=== PATIENT | female | born 1975 | race Caucasian/White ===

== ENCOUNTER → 2022-05-22 10:39 | Outpatient (BNVA) | payer BC, SELFPAY | PROVIDERS: PCP Physician Assistant; Referring Provider Obstetrics & Gynecology; Visit Provider Obstetrics & Gynecology | DX: N81.10 Cystocele, unspecified (principal) | CPT/HCPCS: 81000 ==

== ENCOUNTER → 2022-06-12 11:41 | Outpatient (BNVA) | payer BC, SELFPAY | PROVIDERS: PCP Physician Assistant; Visit Provider Obstetrics & Gynecology | DX: N81.2 Incomplete uterovaginal prolapse (principal); Z01.812 Encounter for preprocedural laboratory examination; N81.6 Rectocele; N39.3 Stress incontinence (female) (male) | CPT/HCPCS: 80053; 81000; 81025; 84702; 85025; 86850; 86900 ==

== ENCOUNTER 2022-06-15 06:46 | Day surgery (SDC) | payer BC, SELFPAY ==
[2022-06-11 12:08] VITALS: BMI 33.6
[2022-06-15 07:03] VITALS: BP 144/102; PULSE 81; RESP 16; TEMP 36.5; O2SAT 97
[2022-06-15] MEDS: sodium chloride 0.9% 1,000 ML 30 ML IV (07:13)
--- NOTE | 2022-06-15 07:44 | ANES.PREANE2 ---
Pre-Anesthetic Assessment Height/Weight: Height 1.57 m Weight 83.461 kg Temp Pulse Resp BP Pulse Ox 97.7 F 81 16 144/102 97 06/15/22 07:03 06/15/22 07:03 06/15/22 07:03 06/15/22 07:03 06/15/22 07:03 Preop Diagnosis: Hematochezia Operation Date: 06/15/22 08:15 Proposed Procedures p Colonoscopy 19426/K92.1 melena(Not Applicable) - Isaiah Herrera MD Familial anesthetic complications: None Was Beta William taken within 24 hours: N/A Was Clonidine taken within 24 hours: N/A Last intake: Intake Last Liquid Date 06/14/22 Last Liquid Time 18:00 Last Solid Date 06/13/22 Last Solid Time 19:00 Social Tobacco and No alcohol Exam alert, oriented x 3, clear to auscultation bilaterally and regular rate & rhythm Airway Mallampati: Class I Dentition: chipped CV/HEM Hypertension GI Gastroesophageal Reflux Disease Anesthetic Plan ASA status: 2 Anesthesia: MAC Risk of > 500 ml blood loss (7ml/kg in children): No Medications/Allergies Home Medications Medication Instructions Recorded Confirmed Last Taken Type atorvastatin 40 mg tablet 40 mg PO DAILY 02/11/22 06/15/22 06/14/22 History lisinopril 10 mg tablet 10 mg PO DAILY 02/11/22 06/15/22 06/14/22 History pantoprazole 40 mg tablet,delayed 40 mg PO QAM #90 tab 05/19/22 06/15/22 06/14/22 Rx release Allergies Allergy/AdvReac Type Severity Reaction Status Date / Time No Known Allergies Allergy Verified 06/15/22 07:02 Current Medications Generic Name Dose Route Start Last Admin Trade Name Freq PRN Reason Stop Dose Admin Sodium Chloride 1,000 mls @ 30 mls/hr 06/15/22 07:00 06/15/22 07:13 Sodium Chloride 0.9% IV 30 mls/hr .Q24H NGOC Administration PFSH Anesthesia Medical History (Updated 05/22/22 @ 13:02 by Abdulkadir Funez MD) GERD (gastroesophageal reflux disease) Family History (Updated 05/22/22 @ 10:02 by Beatriz Booker RN) Family/Other Breast cancer maternal great aunt, 40's Colon cancer maternal aunt, 60's Mother Diabetes Hyperlipidemia Hypertension Stroke Thyroid condition Heart disease Sister Uterine cancer 20's Denies family history of Ovarian cancer Clotting disorder Anesthesia complication Bleeding disorder Social History (Updated 05/19/22 @ 14:22 by Gee Jordan) Smoking and tobacco status: current every day smoker cigarettes Packs smoked per day: 0.5 Years cigarettes smoked: 30 Alcohol intake: current Alcohol intake frequency: holidays/special occasions only Data Anesthesia Cardiac Studies: No Data to Display
--- NOTE | 2022-06-15 08:09 | W.PM.OPSFHP ---
Same Day Surgery H&P Indication for Procedure/HPI DATE OF PROCEDURE: June 15, 2022 CHIEF COMPLAINT/INDICATIONFOR SURGICAL PROCEDURE: Hematochezia PREOP DIAGNOSIS: Hematochezia PLANNED PROCEDURE: Operation Date: 06/15/22 08:15 Proposed Procedures p Colonoscopy 14757/K92.1 melena(Not Applicable) - Isaiah Herrera MD Medications/Allergies* Home Medications Medication Instructions Recorded Confirmed Type atorvastatin 40 mg tablet 40 mg PO DAILY 02/11/22 06/15/22 History lisinopril 10 mg tablet 10 mg PO DAILY 02/11/22 06/15/22 History Allergies/Adverse Reactions Allergy/AdvReac Type Severity Reaction Status Date / Time No Known Allergies Allergy Verified 06/15/22 07:02 Current Medications: Generic Name Dose Route Start Last Admin Trade Name Freq PRN Reason Stop Dose Admin Sodium Chloride 1,000 mls @ 30 mls/hr 06/15/22 07:00 06/15/22 07:13 Sodium Chloride 0.9% IV 30 mls/hr .Q24H NGOC Administration Pertinent History/Comorbid Conditions* Medical History (Updated 05/22/22 @ 13:02 by Abdulkadir Funez MD) GERD (gastroesophageal reflux disease) Family History (Updated 05/22/22 @ 10:02 by Beatriz Booker RN) Colon cancer Family/Other maternal aunt, 60's Diabetes Mother Heart disease Mother Hyperlipidemia Mother Breast cancer Family/Other maternal great aunt, 40's Hypertension Mother Uterine cancer Sister 20's Thyroid condition Mother Stroke Mother Denies family history of Ovarian cancer Clotting disorder Anesthesia complication Bleeding disorder Social History Smoking and tobacco status: current every day smoker cigarettes Packs smoked per day: 0.5 Years cigarettes smoked: 30 Alcohol intake: current Alcohol intake frequency: holidays/special occasions only Pertinent Exam Findings alert, oriented x 3, clear to auscultation bilaterally, regular rate & rhythm, operative site marked and procedure specific exam findings Recommendations Surgery/Procedure today Coding Level of Care Code Acute [employer] for Baldo Sargent
[2022-06-15 09:04] VITALS: BP 116/81; PULSE 69; RESP 22; TEMP 36.1; O2SAT 95
--- NOTE | 2022-06-15 09:05 | ANE.PACU2 ---
Inpatient post-anesthesia follow up: Airway intact: Yes Vital signs: Temperature 97 F Pulse Rate 69 Respiratory Rate 22 Blood Pressure 116/81 Pulse Oximetry 95 Oxygen Delivery Me thod Room Air Oxygen Flow Rate Fraction of Inspir ed Oxygen Hydration adequate: Yes Nausea and vomiting: No Pain level: 1 Mental status: Baseline
[2022-06-15 09:14] VITALS: BP 109/72; PULSE 61; RESP 18; O2SAT 97
== END 2022-06-15 09:25 | disposition home or self-care (01) ==
PROVIDERS: PCP Physician Assistant; Visit Provider Internal Medicine
PROC: 0DJD8ZZ Inspection of Lower Intestinal Tract, Via Natural or Artificial Opening Endoscopic (ICD-10-PCS; CPT 45378; principal; 2022-06-15 08:15)
DX: K92.1 Melena (principal); D12.5 Benign neoplasm of sigmoid colon; I10 Essential (primary) hypertension; K21.9 Gastro-esophageal reflux disease without esophagitis; F17.210 Nicotine dependence, cigarettes, uncomplicated; Z80.0 Family history of malignant neoplasm of digestive organs
CPT/HCPCS: 45385; 88305; J2704; J7030

== ENCOUNTER 2022-06-18 12:13 | Observation (INO) | payer BC, SELFPAY ==
[2022-06-12 12:13] VITALS: BMI 33.5
--- NOTE | 2022-06-12 15:27 | ANES.PREANE2 ---
Pre-Anesthetic Assessment Height/Weight: Height 1.57 m Weight 83.007 kg Preop Diagnosis: Incontinence, prolapse Operation Date: 06/18/22 09:50 Proposed Procedures p Total vaginal hysterectomy, bilateral salpingo-oophorectomy 99066, anterior and posterior colporrhaphy 16606, single incision sling 15882, sacrospinous fixation 39973,N81.0,N81.21,N39.3(Not Applicable) - Abdulkadir Funez MD s Salpingectomy(Bilateral) - Abdulkadir Funez MD s Anterior Repair Anterior Colporrhaphy(Not Applicable) - MD telma Samuels Posterior Repair Posterior Colporrhaphy(Not Applicable) - MD telma Samuels Sling(Not Applicable) - MD telma Samuels Sacrospinous Ligament Suspension(Not Applicable) - Abdulkadir Funez MD Familial anesthetic complications: None Was Beta William taken within 24 hours: N/A Was Clonidine taken within 24 hours: N/A Social No alcohol and No tobacco Exam alert, oriented x 3, clear to auscultation bilaterally and regular rate & rhythm Airway Submandibular: within normal limits Cervical ROM: within normal limits Mallampati: Class I Dentition: chipped History/ROS No significant complaints Pulmonary None reported CV/HEM Hypertension incontinence Hepatic None reported GI Gastroesophageal Reflux Disease Gerd w/ reflux Metabolic None reported Musc/skel None reported Neuropsych None reported Anesthetic Plan ASA status: 2 Anesthesia: Anesthesia Evaluation and General Other: We discussed risk and benefits of general anesthesia including PONV, sore throat (sometimes severe), corneal abrasion, positioning and peripheral nerve injuries, life threatening allergic reaction, post operative ICU admission requiring prolonged intubation, stroke, heart attack, , and rare incidences of recall. Patient consents to proceed with general anesthesia. Risk of > 500 ml blood loss (7ml/kg in children): No Other Pertinent Information HCG Qual positive. I called and discussed this with Shankar on the phone at [phone] on 06/12/22 Serum Pending Medications/Allergies Home Medications Medication Instructions Recorded Confirmed Last Taken Type atorvastatin 40 mg tablet 40 mg PO DAILY 02/11/22 06/12/22 Unknown History lisinopril 10 mg tablet 10 mg PO DAILY 02/11/22 06/12/22 Unknown History pantoprazole 40 mg tablet,delayed 40 mg PO QAM #90 tab 05/19/22 06/12/22 Unknown Rx release Allergies Allergy/AdvReac Type Severity Reaction Status Date / Time No Known Allergies Allergy Verified 06/12/22 10:36 [facility] Anesthesia Medical History (Updated 05/22/22 @ 13:02 by Abdulkadir Funez MD) GERD (gastroesophageal reflux disease) Family History (Updated 05/22/22 @ 10:02 by Beatriz Booker RN) Family/Other Breast cancer maternal great aunt, 40's Colon cancer maternal aunt, 60's Mother Diabetes Hyperlipidemia Hypertension Stroke Thyroid condition Heart disease Sister Uterine cancer 20's Denies family history of Ovarian cancer Clotting disorder Anesthesia complication Bleeding disorder Social History (Updated 05/19/22 @ 14:22 by Gee Jordan) Smoking and tobacco status: current every day smoker cigarettes Packs smoked per day: 0.5 Years cigarettes smoked: 30 Alcohol intake: current Alcohol intake frequency: holidays/special occasions only Data Anesthesia Cardiac Studies: No Data to Display
[2022-06-18] VITALS (13 sets, daily range): BP systolic 90–132; BP diastolic 60–85; PULSE 54–711; RESP 12–20; TEMP 36.1–36.8; O2SAT 94–99
[2022-06-18] MEDS: sodium chloride 0.9% 500 ML IV (06:55)
[2022-06-18] MEDS: scopolamine 1.5 Patch 1 PATCH TRANSDERMA (06:56)
[2022-06-18 07:05] LABS: OR HCG Qualitative Urine Negative (Negative)
[2022-06-18] MEDS: sodium chloride 0.9% 1,000 ML 30 ML IV (07:08)
--- NOTE | 2022-06-18 07:11 | P.ANESUD_ITS ---
Pre-Anesthetic Update Pre-Anesthetic Assessment: Date of Surgery/Procedure: 06/18/22 Preop Megan gnosis: Uterine prolapse, cystocele, rectocele, stress urinary incontinence, pelvic Proposed Procedure: Operation Date: 06/18/22 08:05 Proposed Procedures p Total vaginal hysterectomy, bilateral salpingo-oophorectomy 26032, anterior and posterior colporrhaphy 20562, single incision sling 94534, sacrospinous fixation 89171,N81.0,N81.21,N39.3(Not Applicable) - Abdulkadir Funez MD s Salpingectomy(Bilateral) - MD telma Samuels Anterior Repair Anterior Colporrhaphy(Not Applicable) - MD etlma Samuels Posterior Repair Posterior Colporrhaphy(Not Applicable) - MD telma Samuels Sling(Not Applicable) - MD telma Samuels Sacrospinous Ligament Suspension(Not Applicable) - Abdulkadir Funez MD Any changes to Pre-Anesthetic Assessment?: No Last Intake: Intake Last Liquid Date 06/17/22 Last Liquid Time 21:30 Last Solid Date 06/17/22 Last Solid Time 18:00 Vitals: Temperature 97.0 F L 06/18/22 06:35 Temperature Source Temporal Artery S can 06/18/22 06:35 Pulse Rate 74 06/18/22 06:35 Respiratory Rate 18 06/18/22 06:35 Blood Pressure 120/81 06/18/22 06:35 Blood Pressure Desi n 94 06/18/22 06:35 Pulse Oximetry 96 06/18/22 06:35 Oxygen Delivery Me thod 06/18/22 06:36 Exam: Pre-Anes Outpt Exam: alert, oriented x 3, clear to auscultation bilaterally and regular rate & rhythm Cardiac Studies: No Data to Display
--- NOTE | 2022-06-18 08:03 | W.PM.OPSUD ---
Surgery/Procedure H&P Update DATE OF PROCEDURE: June 18, 2022 DATE H&P PERFORMED: 06/12/22 H&P UPDATE INFORMATION: I have reviewed H&P completed within last 30 days, I have examined patient prior to procedure and No changes to prior documentation PREOP DIAGNOSIS: Uterine prolapse, cystocele, rectocele, stress urinary incontinence, pelvic PLANNED PROCEDURE: Operation Date: 06/18/22 08:05 Proposed Procedures p Total vaginal hysterectomy, bilateral salpingo-oophorectomy 28012, anterior and posterior colporrhaphy 71374, single incision sling 09684, sacrospinous fixation 30044,N81.0,N81.21,N39.3(Not Applicable) - Abdulkadir Funez MD s Salpingectomy(Bilateral) - Abdulkadir Funez MD s Anterior Repair Anterior Colporrhaphy(Not Applicable) - Abdulkadir Funez MD s Posterior Repair Posterior Colporrhaphy(Not Applicable) - Abdulkadir Funez MD s Sling(Not Applicable) - Abdulkadir Funez MD s Sacrospinous Ligament Suspension(Not Applicable) - Abdulkadir Funez MD
[2022-06-18] MEDS: ceFOXitin 2,000 MG in sodium chloride 0.9% (plus) 50 ML 100 MG IV (08:33)
--- NOTE | 2022-06-18 09:14 | SUR.OPER ---
family updated of surgical status
[2022-06-18] MEDS: estrogens Conjugated Cream 30 gm 1 APPLIC VAGINAL (09:19)
--- NOTE | 2022-06-18 10:02 | SUR.OPER ---
family updated of surgical status
--- NOTE | 2022-06-18 11:12 | SUR.OPER ---
family updated of surgical status
--- NOTE | 2022-06-18 12:01 | P.OP_ITS ---
Operative Report Date of procedure: June 18, 2022 Pre-op diagnosis: Preop Diagnosis Uterine prolapse, cystocele, rectocele, stress urinary incontinence, pelvic Post-op diagnosis: Same as above Procedure done: Total vaginal hysterectomy with bilateral salpingo-oophorectomy. Single incision mid urethral sling. Anterior colporrhaphy augmented with allograft. Posterior colporrhaphy. Cystoscopy. Implants: Coloplast Altis single incision mid urethral sling Specimens removed/disposition: Uterus left and right fallopian tube and ovary Surgeon: Abdulkadir Funez MD Estimated blood loss (mL): 400 IV fluids (mL): 1,700 Urine output: 600 Procedure: After informed consent and risks, benefits, indications and alternatives reviewed with the patient was taken to the operating room. The patient was placed in dorsal lithotomy position prepped, and draped in the usual sterile fashion. The pre-procedure timeout verifying the correct patient, procedure, site and side, could not requirements was performed and acknowledge by the OR team. A Laughlin catheter was placed. A Bookwalter vaginal retractor was placed into the vagina in usual manner visualize the cervix. Cervix was grasped with a single tooth tenaculum and circumferentially infiltrated with 2% lidocaine with epinephrine. Then cervix was circumferentially incised with bovie and the bladder was dissected off the pubovesical cervical fascia anteriorly with a sponge stick and Metzenbaum scissors. The anterior peritoneal reflection was identified and the anterior cul-de-sac was entered sharply with Metzenbaum scissors. The same procedure was performed posteriorly and a posterior colpotomy was made through the posterior cul-de-sac space without difficulty and the posterior blade of the Bookwalter vaginal retractor was advanced posteriorly into the cul-de-sac. At this time, the left and right uterosacral ligaments were isolated and ligated with 0 Vicryl. The Voyant device was placed over the uterosacral ligaments on either side and was then used in a serial fashion up through the cardinal ligaments bilaterally cross-clamped, cut, and sealed with the Voyant device. Finally, the uterine arteries were cross-clamped, cut, sealed and ligated with the Voyant device. Hemostasis was assured. The broad ligaments were then serially clamped, sealed and cut with the Voyant device on both sides. Excellent hemostasis was visualized. Both cornua were clamped, sealed and cut with the LigaSure/Voyant device. Then the pedicles were then suture ligated with excellent hemostasis. The uterus was excised and submitted for pathologic evaluation. No other abnormalities were noted in the pelvic cavity. Then the right side Infundibular ligament was identified. The ureter was confirmed along the pelvic side wall and peristalsis was noted. The Voyant device was then used to clamp, sealed and transcepted at middistance, again being sure to be clear of the ureter and the fallopian tube and ovary were removed. The same process was then repeated on the left side. Good hemostasis was assure on both sides. The peritoneum was then closed in a pursestring fashion with 0 Vicryl suture. The vaginal cuff angles were closed with [id number] #0 Vicryl suture on both sides and transfixed with the ipsilateral cardinal and uterosacral ligaments. The remainder of the vaginal cuff was closed with #0 Vicryl in a running locked fashion. Then proceeded to perform the single incision mid urethral sling. he anterior vaginal mucosa beneath the midurethra was infiltrated with 0.5% Marcaine with epinephrine. A vertical midline incision was made beneath the midurethra, nearly 1.5 cm length. Careful submucosal dissection was performed bilaterally up to the interior portion of the inferior pubic ramus. The insertion of adductor longus tendon on the patient?s pubic ramus was identified as reference land nan. Palpated the notch along the internal edge of ischiopubic ramus where the adductor longus tendon and the inferior pubic ramus meet. The Altis single incision sling (SIS) was selected. Then the needle of the SIS inserted aiming at the location of this notch. One of the integrated self- fixating tips place onto the needle by sliding it over the end of the needle. The needle/sling assembly was inserted toward the location of identified reference notch making sure that the flat of the handle is perpendicular to the desired path. The needle was tracked along the posterior surface of the ischiopubic ramus until the midline nan on the mesh is approximately at the midline position under the urethra. The needle was removed and the same was repeated on the contralateral side until the appropriate sling tension under the urethra was achieved ensuring that the mesh lays flat. The needle was removed and vaginal incision was closed in a running interlocking fashion with 2-0 Vicryl. Proceeded to perform anterior colporrhaphy augmented with allograft. The vaginal mucosa was scored in the midline with the Bovie approximately 1 cm medial to the urethral meatus to 1 cm distal to the vaginal cuff. This vaginal mucosa was then undermined and then incised in the midline with the Metzenbaum scissors. The lateral aspects of the vaginal mucosa were then grasped with the Allis clamps and the vaginal mucosa was then dissected off the underlying fascia with the Metzenbaum scissors. Again, there was noted to be quite a bit of oozing at the incision, which was controlled with cautery. After adequate dissection was performed, bilaterally. The Coloplast allograft was modified at time of application to fit spacea, 3 x 2 cm piece . Coloplast dermal allograft placed in front of cystocele ready to be implanted with the Basement Membrane facing the vagina mucosa. Suture is placed at distal end of graft and placed towards vaginal cuff. Final suture is placed on proximal portion of the graft to complete the placement overlying the bladder. Then Interrupted vertical mattress sutures of 0 Vicryl were used to elevate the cystocele superiorly. The excessive vaginal mucosa was then trimmed with the Metzenbaum scissors and the vaginal m ucosa was then reapproximated in the running interlocking fashion with 2-0 Vicryl. The proceeded to perform the posterior colporrhaphy and sacrospinous ligament fixation. The posterior vaginal mucosa is opened in the routine fashion as described previously in Posterior Repair. A finger is inserted through the incision in the posterior vaginal mucosa, dissecting out the rectovaginal space (RVS). The right rectal pillar (RRP) is identified. The rectal pillar can be bluntly perforated either with the [finger or with the tip of a long Gabriela clamp]. A [Breisky- Navratil] retractor is used for exposing the rectovaginal space in order to enter the pararectal space with retraction of the cardinal ligament, vagina, and rectum. Displacing the rectum to the left and the cardinal ligament and ureter anteriorly. A sponge dissector is used to bluntly dissect the sacrospinous ligament removing areolar tissue. The ischial spine was palpated directly, and a area approximately 2 cm medial to the spine was selected for insertion of the Anchorsure transvaginal sacrospinous fixation system. One end of the suture of Anchoresure system inserted through the sacrospinous ligament is placed through the muscular layer of the vagina. In a similar manner, the second suture is placed. The opposite end of the suture in the sacrospinous ligament is left free and held on a small hemostat. Then traction on this suture will draw the vaginal vault directly to the ligament, where a square knot affixes it to the sacrospinous ligament. After the haseeb stich is tied the second safety stich is tied. Then the colporrhaphy/vaginal repair is carried out in routine fashion. A posterior repair was performed next. An incision was made across the introitus. Metzenbaum scissors were used to tunnel beneath posterior vaginal mucosa until the apex of the rectocele bulge was reached. At this point, the rectum was from the posterior vaginal mucosa using sharp and blunt dissection, and the rectal bulge imbricated in the midline with interrupted sutures of 2-0 vicryl suture. Levator ani muscles on either side were approximated in the midline with interrupted 0 Vicryl sutures. Excess posterior vaginal mucosa was excised, and the vaginal episiotomy was repaired by approximating the posterior vaginal mucosa with a suture of Vicryl #0. At this time, instruments were removed from the vagina at hemostasis assured. Then the Laughlin catheter was removed and cystoscope was inserted. The bladder was filled with sterile water. Complete evaluation of the bladder mucosa was performed noting no lacerations, dimpling, tears, bleeding of the mucosa or muscular layers. Both ureteral orifices were identified. Prompt excretion of urine from both ureteral orifices was noted. Cystoscope was withdrawn. Laughlin catheter was then placed yielding clear surekha urine. A vaginal packing with Premarin cream was placed and the patient was taken out of dorsal lithotomy position and awakened from the general anesthesia. The patient tolerated the procedure well and was taken to the PACU recovery room in a stable condition. Sponge, lap, needle and instruments counts were correct x3.
[2022-06-18] MEDS: ketorolac 30 mg/mL INJ IVP ×2 (13:10→18:20)
[2022-06-18] MEDS: dextrose 5%-lactated ringers 1,000 ML 125 ML IV ×2 (13:11→21:15)
[2022-06-18] MEDS: HYDROcodone-acetaminophen 5-325 mg Tablet PO (13:39)
--- NOTE | 2022-06-18 16:22 | ANE.PACU2 ---
Inpatient post-anesthesia follow up: Airway intact: Yes Vital signs: Temperature 98.0 F Pulse Rate 54 Respiratory Rate 16 Blood Pressure 98/62 Pulse Oximetry 96 Oxygen Delivery Me thod Room Air Oxygen Flow Rate Fraction of Inspir ed Oxygen Hydration adequate: Yes Nausea and vomiting: No Pain level: 3 Mental status: Baseline
[2022-06-18] MEDS: pantoprazole DR 40 mg Tablet PO (18:21)
[2022-06-18] MEDS: docusate sodium 100 mg Capsule PO (18:21)
[2022-06-18] MEDS: calcium carbonate 500 mg Chew Tablet 1000 MG PO (20:38)
[2022-06-19 01:11] VITALS: BP 119/73; PULSE 53; RESP 16
[2022-06-19] MEDS: acetaminophen 325 mg Tablet 650 MG PO (03:35)
[2022-06-19 03:38] VITALS: BP 136/86; PULSE 67; RESP 15
[2022-06-19 05:37] LABS: Hematocrit 34.8 % (37.0-47.0); Hemoglobin 12.2 g/dL (11.5-15.3); Mean Corpuscular HGB Conc 35.1 g/dL (30.0-36.0); Mean Corpuscular Volume 85.5 fl (81-99); Mean Platelet Volume 12.2 fL (7.4-10.4); Platelet Count 196 10^3/cmm (130-400); Red Blood Count 4.07 10^6/uL (4.1-5.3); Red Cell Distribution Width 12.4 % (12.1-15.1); White Blood Count 16.5 10^3/uL (4.0-10.0)
[2022-06-19] MEDS: docusate sodium 100 mg Capsule PO (08:46)
[2022-06-19] MEDS: simethicone 80 mg Chew PO (08:46)
[2022-06-19] MEDS: ibuprofen 800 mg tablet PO (08:46)
--- NOTE | 2022-06-19 10:49 | P.DS_ITS ---
Discharge Providers SENIOR LEAD PROJECT MANAGER Date of Admission: 06/18/22 12:13 Date of Discharge: 06/19/22 Attending Provider at Admission: Abdulkadir Funez MD Attending Provider at Discharge: Abdulkadir Funez MD Primary SENIOR LEAD PROJECT MANAGER: Abdulkadir Funez MD Primary Care Provider: Maricruz Poole Reason for Visit Reason for Visit: Surgery Hospital Course Hospital Course Mrs. Sexton 46-year-old female admitted for planned total vaginal hysterectomy with bilateral salpingo-oophorectomy, anterior colporrhaphy augmented with allograft, single incision mid urethral sling, posterior colporrhaphy and sacrospinous fixation. The procedures were performed without complication. Overnight observation has been uneventful. She is afebrile and hemodynamically stable postoperative day 1. Ambulating without difficulty. Tolerating diet well. PVR x2 abnormal and the patient discharged home with Laughlin catheter and instructed to follow-up on Wednesday at the clinic. She was also counseled regarding pelvic rest for 6 weeks (no sex, no tampons, no vaginal douches). Return to the emergency room if any fever, increased bleeding or pain. Physical Exam Narrative: GA: Alert and oriented ?3. HEENT: WNL. Heart: Regular rate and rhythm. Lungs: Clear to auscultation bilaterally. Abdomen: Bowel sounds present, nontender. BUDGET ENGINEER: Spotting bleeding. Extremities: No edema, no cyanosis, no calves pain. Urinary Catheter Management: Laughlin Latex: Cath Placed During This Visit: yes Urinary Catheter Date of Insertion: 06/18/22 Urinary Catheter Time of Insertion: 09:12 History History History 5 Term 0 Miscarriages/Ectopic 2 3 Living Children 3 Discharge Data Studies Completed and Pending Pending at discharge Category Date Time Status ES surgery / GI images Routine Exams 06/18/22 09:16 Taken Pathology: Surgical [PTH] Routine Pth 06/18/22 11:25 Received Laboratory Results WBC 16.5 10^3/uL (4.0-10.0) H 06/19/22 05:15 RBC 4.07 10^6/uL (4.1-5.3) L 06/19/22 05:15 Hgb 12.2 g/dL (11.5-15.3) 06/19/22 05:15 Hct 34.8 % (37.0-47.0) L 06/19/22 05:15 MCV 85.5 fl (81-99) 06/19/22 05:15 MCH 30.0 pg (28.0-34.0) 06/19/22 05:15 MCHC 35.1 g/dL (30.0-36.0) 06/19/22 05:15 RDW 12.4 % (12.1-15.1) 06/19/22 05:15 Plt Count 196 10^3/cmm (130-400) 06/19/22 05:15 MPV 12.2 fL (7.4-10.4) H 06/19/22 05:15 Urine HCG, Qual Negative (Negative) 06/18/22 06:58 Blood Type O Negative 06/18/22 05:51 Rho(D) Type Negative 06/18/22 05:51 Antibody Screen Negative 06/18/22 05:51 Vitals Last Vital Signs Temp 98.3 F 06/18/22 19:48 Pulse 67 06/19/22 03:38 Resp 15 06/19/22 03:38 BP 136/86 06/19/22 03:38 Pulse Ox 97 06/18/22 19:48 Discharge Plan Discharge Patient Disposition: Home Condition: Stable Prescriptions: New hydrocodone-acetaminophen 5-325 mg tablet 1 tab PO Q4H PRN (Reason: pain) Qty: 20 0RF acetaminophen 325 mg capsule 325 mg PO Q4H PRN (Reason: fever or pain) Qty: 60 0RF docusate sodium [Colace] 100 mg capsule 100 mg PO BID Qty: 30 0RF ibuprofen 800 mg tablet 800 mg PO TID PRN (Reason: pain) Qty: 60 0RF Continued lisinopril 10 mg tablet 10 mg PO DAILY 0RF atorvastatin 40 mg tablet 40 mg PO DAILY 0RF pantoprazole 40 mg tablet,delayed release (DR/EC) 40 mg PO QAM Qty: 90 3RF Discharge Orders: Discharge Order (Routine); Ordered 06/19/22 Ordered By: Abdulkadir Funez Discharge Diet: Soft Mechanical Discharge Activity: Limit activity as instructed Patient Instructions: Opioid Safety, Vaginal Hysterectomy (GEN), Hysterectomy (GEN), Bladder Sling for Women (GEN), Anterior Vaginal Repair (GEN), Posterior Vaginal Repair (GEN) Activity Restrictions/Additional Instructions: 1. Please call [facility] on next working day to make your post-operative appointment in 2 weeks. 2. Please stay home until you come back to the clinic on first post-operative check up. 3. Please follow instructions on your medications CAREFULLY. 4. If you have abdominal incision, do not cover it unless dressing is necessary because of drainage. OK to shower, but avoid bath. Leave steri-strips until they fall off. If they are still on one week after surgery, you may remove them. 5. If you had vaginal surgery or vaginal repair, Dr. Funez may instruct you to take SITZ bath. 6. Yellow, blood tinged odorous vaginal discharge is usually normal after hysterectomy or vaginal surgeries. 7. No sexual intercourse, tampons, or douches until you are completely released from the post-operative care. 8. Avoid constipation by eating right and maybe using some Metamucil or Milk of Magnesia. 9. All prescription refills are given during the working hours. Please do no wait till it runs out. Call the clinic at [phone] before your medication runs out. The clinic will get in touch with your doctor to prescribe medications if necessary. 10. Please remain within 40 mile radius from our hospital because emergencies do happen now and then during the post-operative period. 11. If you have stairs at home, take one step at a time slowly and minimize the number of trips. It helps to stay in one floor for the next few days. No lifting except what you can lift by one hand until you are released from the post-operative care. 12. Driving is discouraged until you are well healed. It may be 3-4 weeks before you feel strong enough to drive. You should be able to turn and look through the rear window without pain and you should be able to push the brake pedal very hard without pain before you drive. No fast rules, but SAFETY should be your primary concern. DO NOT drive if you are on sedating medications such as narcotics. 13. Call the clinic (during working hours) to make urgent appointment or go to the Emergency room, if any of the following occurs: i. Vaginal bleeding becomes heavy, more than a period. ii. Incision becomes red and sore, or drains pus. iii. Your temperature is over 100.4 or you have chill. iv. IV site becomes red and swollen (a little ``knot?? is usually OK) v. Persistent nausea and vomiting vi. Persistent constipation or diarrhea vii. Rash or allergic reaction to medications. Discharge Attestations SENIOR LEAD PROJECT MANAGER Time Spent in Discharge Care*: greater than 30 min Coding Level of Care Code Acute Cook Soup for Baldo Sargent
[2022-06-19] MEDS: HYDROcodone-acetaminophen 5-325 mg Tablet PO (11:30)
[2022-06-19 12:20] VITALS: BP 136/73; PULSE 67; RESP 17
== END 2022-06-19 12:25 | disposition home or self-care (01) ==
LOC: OBGYN 12:15
PROVIDERS: Anesthesiology; Admitting Provider Obstetrics & Gynecology; PCP Physician Assistant; Visit Provider Obstetrics & Gynecology
PROC: (CPT 57260; principal; 2022-06-18 08:05)
PROC: (CPT 57250; 2022-06-18 08:05)
PROC: (CPT 57288; 2022-06-18 08:05)
PROC: (CPT 57282; 2022-06-18 08:05)
PROC: 0TJB8ZZ Inspection of Bladder, Via Natural or Artificial Opening Endoscopic (ICD-10-PCS; CPT 52000; 2022-06-18 08:05)
PROC: (CPT 58720; 2022-06-18 08:05)
PROC: 0JQC0ZZ Repair Pelvic Region Subcutaneous Tissue and Fascia, Open Approach (ICD-10-PCS; CPT 57240; 2022-06-18 08:05)
DX: N81.4 Uterovaginal prolapse, unspecified (principal); I10 Essential (primary) hypertension; K21.9 Gastro-esophageal reflux disease without esophagitis; F17.210 Nicotine dependence, cigarettes, uncomplicated
CPT/HCPCS: 57260; 57288; 58262; 36415; 51702; 51798; 81025; 84703; 85027; 86850; 86900; 88305; C1713; C1762; G0378; J0694; J1100; J1170; J1200; J1885; J2250; J2405; J2704; J2710; J3010; J3490; J7030; J7040; Q9968

== ENCOUNTER 2022-06-25 04:33 | Emergency (ER) | payer BC, SELFPAY ==
[2022-06-25] VITALS (8 sets, daily range): BP systolic 101–149; BP diastolic 56–89; PULSE 54–62; RESP 14–22; TEMP 37.1; O2SAT 96–100; BMI 34.2
--- NOTE | 2022-06-25 04:39 | CTR_ITS ---
PROCEDURE INFORMATION: Exam: CT Abdomen And Pelvis Without Contrast Exam date and time: 06/25/2022 4:49 AM Age: 46 years old Clinical indication: Abdominal pain; Localized; Prior surgery; Surgery date: 3-7 days post-operative; Patient HX: C/O worsening lower abd/pelvic pain since hysterectomy on 06/18/2022. ; Additional info: Abd pain TECHNIQUE: Imaging protocol: Computed tomography of the abdomen and pelvis without contrast. Radiation optimization: All CT scans at this facility use at least one of these dose optimization techniques: automated exposure control; mA and/or kV adjustment per patient size (includes targeted exams where dose is matched to clinical indication); or iterative reconstruction. COMPARISON: ES surgery / GI images 06/18/2022 9:17 AM RADIATION DOSE METRICS: Total DLP (mGy-cm): 973.34 FINDINGS: Diaphragm: Small hiatal hernia. Liver: Mild fatty liver. Gallbladder and bile ducts: No calcified stones. No ductal dilation. Pancreas: No ductal dilation. Spleen: No splenomegaly. Adrenal glands: Normal. No mass. 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 No hydronephrosis. No calcified ureteral stones. Unremarkable appearance of the right kidney. Stomach and bowel: No obstruction. No mucosal thickening. Appendix: No evidence of appendicitis. Intraperitoneal space: Small amount of free fluid noted in the pelvis. No complex contained fluid collection. Vasculature: No abdominal aortic aneurysm. Lymph nodes: No enlarged lymph nodes. Urinary bladder: Small amount of air noted in the urinary bladder which may be due to infection or recent instrumentation. Reproductive: Status post hysterectomy. Bones/joints: Unremarkable. No acute fracture. Soft tissues: Unremarkable. CT/CT abdomen pelvis wo con [id number] IMPRESSION: 1. Small amount of air noted in the urinary bladder which may be due to infection or recent instrumentation. 2. Small amount of free fluid noted in the pelvis. No complex contained fluid collection.
--- NOTE | 2022-06-25 04:39 | ED_ITS ---
Documented by User: Tigre Tay MD 06/25/22 04:43 HPI - Abdominal Pain General: Chief Complaint: Abdominal Pain Stated Complaint: ABD PAIN/POST HYSTERECTOMY SURGERY Time Seen by Provider: 06/25/22 04:36 Source: patient and EMS Mode of arrival: EMS Limitations: no limitations History of Present Illness: 38-year-old female is here by EMS she states she had a vaginal hysterectomy 1 week ago she states that she started having severe pains at 2 AM. She states she is also taken her last hydrocodone. States her pain is in her lower abdomen rates it an 8 out of 10. She denies any fever denies any vomiting or diarrhea. She denies any vaginal bleeding she denies any worsening proving factors. Associated Symptoms: Denies chills, dysuria and fever(s) Review of Systems Const: Denies: fever(s), chills, body aches or change in appetite Eyes: Denies: blurry vision or eye discomfort ENMT: Denies: throat pain or dental pain Card: Denies: chest pain Resp: Denies: dyspnea GI: Reports: abdominal pain : Denies: dysuria Musc: Denies: neck pain or back pain Skin/Breast: Denies: rash Neuro: Denies: headache(s) Psych: Denies: depression Barrera/Lymph: Denies: easy bruising All/Imm: Denies: urticaria PFSH ED PFSH: Medical History GERD (gastroesophageal reflux disease) Family History Family/Other Breast cancer maternal great aunt, 40's Colon cancer maternal aunt, 60's Mother Diabetes Hyperlipidemia Hypertension Stroke Thyroid condition Heart disease Sister Uterine cancer 20's Denies family history of Ovarian cancer Clotting disorder Anesthesia complication Bleeding disorder Social History Smoking and tobacco status: current every day smoker cigarettes Packs smoked per day: 0.5 Years cigarettes smoked: 30 Alcohol intake: current Alcohol intake frequency: holidays/special occasions only Physical Exam Const: COMMON NORMALS: no acute distress, patient oriented x3 and healthy ap pearing HENMT: COMMON NORMALS: normocephalic and atraumatic HEAD & SCALP: normocephalic and atraumatic Eye: COMMON NORMALS: Equal, round and reactive pupils present and EOMs intact bilaterally PUPIL: Yes Equal, round and reactive pupils present Neck/C-Spine: COMMON NORMALS: full ROM and supple Chest: COMMONS NORMALS: normal inspection of the chest and normal palpation of entire chest wall Resp: COMMON NORMALS: normal respiratory effort, No retractions, No use of accessory muscles and clear to auscultation bilaterally AUSCULTATION: clear to auscultation bilaterally Cardio: COMMON NORMALS: regular rate, regular rhythm and No murmurs present (Cardio) RATE: regular rate RHYTHM: regular rhythm GI: COMMON NORMALS: Normal to inspection, nondistended, normoactive bowel sounds present, Soft to palpation and no masses PALPATION: Yes Soft to palpation OTHER: lower abdominal tenderness Extremity: COMMON NORMALS: normal to inspection and full ROM Neuro: COMMON NORMALS: patient oriented x3, moves all extremities and no focal motor deficits Psych: COMMON NORMALS: mental status grossly normal, Normal thought process present and cooperative THOUGHT PROCESS: Normal thought process present Skin: COMMON NORMALS: no rashes or lesions noted and no wounds GENERAL SKIN EXAM: no rashes or lesions noted Course Vital Signs: Vital signs: Vital Signs Temperature 98.7 F 06/25/22 04:35 Pulse Rate 59 L 06/25/22 06:30 Respiratory Rate 14 06/25/22 08:17 Blood Pressure 131/88 06/25/22 06:30 Pulse Oximetry 96 06/25/22 08:17 Oxygen Delivery Me thod 06/25/22 06:30 MDM - Abdominal Pain Lab Data : 06/25/22 04:44 06/25/22 04:44 Labs/Radiology: Radiology Impressions Abdomen/Pelvis CT 06/25/22 04:39 IMPRESSION: 1. Small amount of air noted in the urinary bladder which may be due to infection or recent instrumentation. 2. Small amount of free fluid noted in the pelvis. No complex contained fluid collection. Laboratory Results WBC 10.3 10^3/uL (4.0-10.0) H 06/25/22 04:44 RBC 4.04 10^6/uL (4.1-5.3) L 06/25/22 04:44 Hgb 12.1 g/dL (11.5-15.3) 06/25/22 04:44 Hct 36.1 % (37.0-47.0) L 06/25/22 04:44 MCV 89.4 fl (81-99) 06/25/22 04:44 MCH 30.0 pg (28.0-34.0) 06/25/22 04:44 MCHC 33.5 g/dL (30.0-36.0) 06/25/22 04:44 RDW 12.7 % (12.1-15.1) 06/25/22 04:44 Plt Count 220 10^3/cmm (130-400) 06/25/22 04:44 MPV 10.9 fL (7.4-10.4) H 06/25/22 04:44 Neut % (Auto) 75.7 % 06/25/22 04:44 Lymph % (Auto) 13.5 % 06/25/22 04:44 Tift % (Auto) 9.2 % 06/25/22 04:44 Eos % (Auto) 0.5 % 06/25/22 04:44 Baso % (Auto) 0.3 % 06/25/22 04:44 Neut # (Auto) 7.78 10^3/uL (1.8-7.7) H 06/25/22 04:44 Lymph # (Auto) 1.4 10^3/uL (0.8-4.8) 06/25/22 04:44 Tift # (Auto) 0.9 10^3/uL (0.2-0.9) 06/25/22 04:44 Eos # (Auto) 0.1 10^3/uL (0.0-0.8) 06/25/22 04:44 Baso # (Auto) 0.0 10^3/uL (0.0-0.1) 06/25/22 04:44 Nucleated RBC % (auto) 0 % 06/25/22 04:44 Nucleated RBCs # 0.0 /100WBC 06/25/22 04:44 Sodium 140 mmol/L (136-145) 06/25/22 04:44 Potassium 4.1 mmol/L (3.5-5.1) 06/25/22 04:44 Chloride 105 mmol/L (98-107) 06/25/22 04:44 Carbon Dioxide 21 mmol/L (22-29) L 06/25/22 04:44 Anion Gap 18.1 (5-19) 06/25/22 04:44 BUN 13 mg/dL (6-20) 06/25/22 04:44 Creatinine 0.9 mg/dL (0.5-0.9) 06/25/22 04:44 GFR Calculation 66.8 mL/min (90-130) L 06/25/22 04:44 Glucose 116 mg/dL (65-115) H 06/25/22 04:44 Calculated Osmolality 291 mOsm/kg (285-295) 06/25/22 04:44 Calcium 8.9 mg/dL (8.5-10.5) 06/25/22 04:44 Total Bilirubin 0.3 mg/dL (0.15-1.2) 06/25/22 04:44 AST 13 U/L (0-32) 06/25/22 04:44 ALT 9 U/L (0-33) 06/25/22 04:44 Alkaline Phosphatase 123 IU/L (35-105) H 06/25/22 04:44 Total Protein 6.2 g/dL (6.6-8.7) L 06/25/22 04:44 Albumin 3.4 g/dL (3.5-5.2) L 06/25/22 04:44 Globulin 2.8 g/dL (1.3-4.6) 06/25/22 04:44 Lipase 13 U/L (13-60) 06/25/22 04:44 Urine Color Yellow (Yellow) 06/25/22 06:47 Urine Appearance Clear (CLEAR) 06/25/22 06:47 Urine pH 5 (5-7) 06/25/22 06:47 Ur Specific Ell[place] 1.020 (1.005-1.030) 06/25/22 06:47 Urine Protein Neg (Negative) 06/25/22 06:47 Urine Glucose (UA) Norm (Normal) 06/25/22 06:47 Urine Ketones Negative (Negative) 06/25/22 06:47 Urine Blood Neg (Negative) 06/25/22 06:47 Urine Nitrate Negative (Negative) 06/25/22 06:47 Urine Bilirubin Neg (Negative) 06/25/22 06:47 Urine Urobilinogen Norm mg/dL (Negative) 06/25/22 06:47 Ur Leukocyte Esterase Negative (Negative) 06/25/22 06:47 Urine RBC 15-25 /hpf (0-2) H 06/25/22 05:14 Urine WBC 40-55 /hpf (0-5) H 06/25/22 05:14 Ur Squamous Epith Cells 0-4 /hpf (0-5) H 06/25/22 05:14 Amorphous Sediment Not Reportable 06/25/22 05:14 Urine Bacteria Trace /hpf (NONE) 06/25/22 05:14 Urine Mucus Trace /hpf 06/25/22 05:14 Discharge Plan Discharge Patient Disposition: Home Clinical Impression: Status post hysterectomy with oophorectomy Condition: Stable Prescriptions: No Action lisinopril 10 mg tablet 10 mg PO DAILY atorvastatin 40 mg tablet 40 mg PO DAILY pantoprazole 40 mg tablet,delayed release (DR/EC) 40 mg PO QAM Qty: 90 3RF acetaminophen 325 mg capsule 325 mg PO Q4H PRN (Reason: fever or pain) Qty: 60 0RF ibuprofen 800 mg tablet 800 mg PO TID PRN (Reason: pain) Qty: 60 0RF Colace 100 mg capsule 100 mg PO BID Qty: 30 0RF hydrocodone-acetaminophen 5-325 mg tablet 1 tab PO Q4H PRN (Reason: pain) Qty: 20 0RF Discharge Orders: Discharge ED (Routine); Ordered 06/25/22 Ordered By: Washington Henao Referrals: Maricruz Poole PA-C [Primary Care Provider] - Discharge Diet: Usual diet Discharge Activity: Limit activity as instructed Patient Instructions: Opioid Safety Activity Restrictions/Additional Instructions: Continue same restrictions were given at the time of discharge. Follow-up with Dr. Funez or one of his colleagues as previously scheduled. Sign Out Sign Out Data: Patient Sign Out occurred on 06/25/22 at 07:20. Patient's care was discussed, and care was transferred from to Washington Henao DO. Coding Level of Care Code ED Director Of Dementia Operations for Chg Fwd Exam Comprehensive Documented by User: Washington Henao DO 06/25/22 08:49 HPI - Abdominal Pain General: Chief Complaint: Abdominal Pain Stated Complaint: ABD PAIN/POST HYSTERECTOMY SURGERY Time Seen by Provider: 06/25/22 04:36 PFSH ED PFSH: Medical History GERD (gastroesophageal reflux disease) Family History Family/Other Breast cancer maternal great aunt, 40's Colon cancer maternal aunt, 60's Mother Diabetes Hyperlipidemia Hypertension Stroke Thyroid condition Heart disease Sister Uterine cancer 20's Denies family history of Ovarian cancer Clotting disorder Anesthesia complication Bleeding disorder Social History Smoking and tobacco status: current every day smoker cigarettes Packs smoked per day: 0.5 Years cigarettes smoked: 30 Alcohol intake: current Alcohol intake frequency: holidays/special occasions only Course Vital Signs: Vital signs: Vital Signs Temperature 98.7 F 06/25/22 04:35 Pulse Rate 59 L 06/25/22 06:30 Respiratory Rate 14 06/25/22 08:17 Blood Pressure 131/88 06/25/22 06:30 Pulse Oximetry 96 06/25/22 08:17 Oxygen Delivery Me thod 06/25/22 06:30 MDM - Abdominal Pain Medical Decision Making Care assumed from Dr. Tay at change of shift labs reviewed urine was questionable so he had it repeated with a cath UA at which time it was normal. Think some of this may be due to constipation she can try some magnesium citrate continue same restrictions postop. Encouraged her to follow-up with Dr. Singleton or one of his colleagues. Medical Records I reviewed the patient's medical records. Lab Data I reviewed the patient's lab results. : 06/25/22 04:44 06/25/22 04:44 Labs/Radiology: Radiology Impressions Abdomen/Pelvis CT 06/25/22 04:39
[2022-06-25] MEDS: ondansetron 2 mg/ML SDV 2 mL 4 MG IVP (04:47)
[2022-06-25] MEDS: morphine 4 mg/mL SDV 1 mL IVP ×2 (04:47→06:32)
[2022-06-25 04:52] LABS: Basophils % 0.3 %; Eosinophils # 0.1 10^3/uL (0.0-0.8); Eosinophils % 0.5 %; Hematocrit 36.1 % (37.0-47.0); Hemoglobin 12.1 g/dL (11.5-15.3); Lymphocytes # 1.4 10^3/uL (0.8-4.8); Lymphocytes % 13.5 %; Mean Corpuscular HGB Conc 33.5 g/dL (30.0-36.0); Mean Corpuscular Volume 89.4 fl (81-99); Mean Platelet Volume 10.9 fL (7.4-10.4); Monocytes # 0.9 10^3/uL (0.2-0.9); Monocytes % 9.2 %; Neutrophils # 7.78 10^3/uL (1.8-7.7); Neutrophils % 75.7 %; Nucleated Red Blood Cells % 0 %; Platelet Count 220 10^3/cmm (130-400); Red Blood Count 4.04 10^6/uL (4.1-5.3); Red Cell Distribution Width 12.7 % (12.1-15.1); White Blood Count 10.3 10^3/uL (4.0-10.0)
[2022-06-25 05:14] LABS: Alanine Aminotransferase 9 U/L (0-33); Albumin Level 3.4 g/dL (3.5-5.2); Alkaline Phosphatase 123 IU/L (35-105); Anion Gap 18.1 (5-19); Aspartate Amino Transferase 13 U/L (0-32); Blood Urea Nitrogen 13 mg/dL (6-20); Calcium 8.9 mg/dL (8.5-10.5); Carbon Dioxide 21 mmol/L (22-29); Chloride 105 mmol/L (98-107); Globulin 2.8 g/dL (1.3-4.6); Glomerular Filtration Rate 66.8 mL/min (90-130); Glucose 116 mg/dL (65-115); Lipase 13 U/L (13-60); Osmolality Calculated 291 mOsm/kg (285-295); Potassium 4.1 mmol/L (3.5-5.1); Sodium 140 mmol/L (136-145); Total Bilirubin 0.3 mg/dL (0.15-1.2); Total Protein 6.2 g/dL (6.6-8.7)
[2022-06-25 05:36] LABS: Specific Gravity, Urine 1.025 (1.005-1.030); Urine Appearance Clear (CLEAR); Urine Color Yellow (Yellow); pH Urine 5 (5-7)
[2022-06-25 05:37] LABS: Add Urine Culture? Yes; Add Urine Microscopic? YES; Bacteria Urine TRACE /hpf; Bilirubin Urine Neg (Negative); Blood Urine 3+ (Negative); Glucose Urine UA Norm (Normal); Ketones Urine Negative (Negative); Leukocyte Esterase Urine 2+ (Negative); Mucus Urine TRACE /hpf; Nitrate Urine Negative (Negative); Protein Urine Neg (Negative); RBC Urine 15-25 /hpf (0-2); Squamous Epithelial Cell Urine 0-4 /hpf (0-5); Urobilinogen Urine Norm (Negative); WBC Urine 40-55 /hpf (0-5)
--- NOTE | 2022-06-25 07:16 | PC.NURSE ---
WHILE AT BEDSIDE PT CO 10/[address] PA[address] INFOR[address] DASH VERBALIZED UNDERSTANDING NO FURTHER ORDERS.
[2022-06-25] MEDS: morphine 4 mg/mL SDV 1 mL 2 MG IVP (08:17)
[2022-06-25 08:25] LABS: Add Urine Microscopic? NO; Charge for UA Resulting for Rev
[2022-06-25 08:30] LABS: Bilirubin Urine Neg (Negative); Blood Urine Neg (Negative); Glucose Urine UA Norm (Normal); Ketones Urine Negative (Negative); Leukocyte Esterase Urine Negative (Negative); Nitrate Urine Negative (Negative); Protein Urine Neg (Negative); Urine Appearance Clear (CLEAR); Urine Color Yellow (Yellow); Urobilinogen Urine Norm (Negative); pH Urine 5 (5-7)
== END 2022-06-25 08:58 | disposition home or self-care (01) ==
PROVIDERS: Emergency Medicine; Emergency Provider Family Medicine; PCP Physician Assistant
DX: R10.9 Unspecified abdominal pain (principal); Z90.710 Acquired absence of both cervix and uterus; F17.210 Nicotine dependence, cigarettes, uncomplicated
CPT/HCPCS: 74176; 80053; 81001; 81003; 83690; 85025; 87086; 96374; 96375; 96376; 99284; C1751; J2270; J2405

== ENCOUNTER 2022-06-29 20:34 | Emergency (ER) | payer BC, SELFPAY ==
[2022-06-29 20:45] VITALS: BP 159/105; PULSE 102; RESP 18; TEMP 36.5; O2SAT 97; BMI 33.2
[2022-06-29 21:01] LABS: Basophils # 0.1 10^3/uL (0.0-0.1); Basophils % 0.6 %; Eosinophils # 0.1 10^3/uL (0.0-0.8); Eosinophils % 1.2 %; Hematocrit 37.3 % (37.0-47.0); Hemoglobin 12.6 g/dL (11.5-15.3); Lymphocytes # 2.7 10^3/uL (0.8-4.8); Lymphocytes % 22.3 %; Mean Corpuscular HGB Conc 33.8 g/dL (30.0-36.0); Mean Corpuscular Hemoglobin 29.6 pg (28.0-34.0); Mean Corpuscular Volume 87.8 fl (81-99); Mean Platelet Volume 10.1 fL (7.4-10.4); Monocytes # 0.7 10^3/uL (0.2-0.9); Monocytes % 5.4 %; Neutrophils # 8.41 10^3/uL (1.8-7.7); Neutrophils % 69.8 %; Nucleated Red Blood Cells % 0 %; Platelet Count 347 10^3/cmm (130-400); Red Blood Count 4.25 10^6/uL (4.1-5.3); Red Cell Distribution Width 12.8 % (12.1-15.1)
[2022-06-29 21:22] LABS: Alanine Aminotransferase 11 U/L (0-33); Albumin Level 3.9 g/dL (3.5-5.2); Alkaline Phosphatase 102 IU/L (35-105); Anion Gap 18.4 (5-19); Aspartate Amino Transferase 12 U/L (0-32); Blood Urea Nitrogen 15 mg/dL (6-20); Calcium 9.4 mg/dL (8.5-10.5); Carbon Dioxide 21 mmol/L (22-29); Chloride 102 mmol/L (98-107); Globulin 2.6 g/dL (1.3-4.6); Glomerular Filtration Rate 59.2 mL/min (90-130); Glucose 113 mg/dL (65-115); Osmolality Calculated 286 mOsm/kg (285-295); Potassium 4.4 mmol/L (3.5-5.1); Sodium 137 mmol/L (136-145); Total Bilirubin 0.2 mg/dL (0.15-1.2); Total Protein 6.5 g/dL (6.6-8.7)
== END 2022-06-29 22:37 | disposition left against medical advice (07) ==
PROVIDERS: Emergency Medicine; Emergency Provider Family Medicine; PCP Physician Assistant
DX: Z53.21 Procedure and treatment not carried out due to patient leaving prior to being seen by health care provider (principal)
CPT/HCPCS: 80053; 85025; 99283

== ENCOUNTER 2022-07-03 07:18 | Emergency (ER) | payer BC, SELFPAY ==
[2022-07-03 07:28] VITALS: BP 137/90; PULSE 79; RESP 15; TEMP 36.8; O2SAT 98; BMI 32.5
[2022-07-03 07:34] VITALS: BP 137/90; PULSE 80; RESP 18; O2SAT 99
[2022-07-03 08:04] VITALS: BP 114/74; PULSE 64; RESP 17; O2SAT 97
--- NOTE | 2022-07-03 08:31 | ED_ITS ---
HPI - General Adult General: Chief complaint: General Medical Stated complaint: Post Op, in pain Time Seen by Provider: 07/03/22 07:43 Source: patient Mode of arrival: ambulatory History of Present Illness: 46-year-old female presents emergency room she is 2 weeks postop vaginal assisted hysterectomy. She is complaining of some discharge is also complaining of difficulty with urination and abdominal pain she states been going on since that she had surgery she has not had any fever sweats or chills. She has not had any vomiting or diarrhea. She has not seen her surgeon since the surgery. Onset (ago): day(s) Location: pelvis Quality: aching Relieving factors: none Exacerbating factors: none Associated symptoms: Deny chest pain, confusion, cough, diaphoresis, decreased appetite, dyspnea, fevers/chills, headache(s), malaise, nausea, rash, short of breath or vomiting Review of Systems Const: Denies: fever(s), chills, fatigue, malaise or diaphoresis Card: Denies: chest pain Resp: Denies: dyspnea GI: Denies: nausea or vomiting : Reports: difficulty voiding and urinary hesitancy; Denies: flank pain, dysuria, urinary frequency or urinary urgency Skin/Breast: Denies: rash or pruritus Neuro: Denies: headache(s) or confusion PFSH ED PFSH: Medical History GERD (gastroesophageal reflux disease) Family History Family/Other Breast cancer maternal great aunt, 40's Colon cancer maternal aunt, 60's Mother Diabetes Hyperlipidemia Hypertension Stroke Thyroid condition Heart disease Sister Uterine cancer 20's Denies family history of Ovarian cancer Physical Exam Const: COMMON NORMALS: no acute distress GENERAL APPEARANCE: cooperative and comfortable ORIENTATION/CONSCIOUSNESS: Yes awake, Yes oriented to person, Yes oriented to place and Yes oriented to time HENMT: COMMON NORMALS: normocephalic and atraumatic HEAD & SCALP: normocephalic and atraumatic Resp: COMMON NORMALS: normal respiratory effort, No retractions, No use of accessory muscles and clear to auscultation bilaterally AUSCULTATION: clear t o auscultation bilaterally Cardio: COMMON NORMALS: regular rate, regular rhythm and No murmurs present (Cardio) RATE: regular rate RHYTHM: regular rhythm GI: COMMON NORMALS: Soft to palpation and No hepatosplenomegaly present AUSCULTATION: Yes normoactive bowel sounds PALPATION: Yes Soft to palpation, No Tenderness to palpation present (GI), No Guarding due to palpation present (GI) and Yes No hepatosplenomegaly present Extremity: COMMON NORMALS: normal to inspection, capillary refill normal, no clubbing, cyanosis or edema, no calf tenderness and no pedal edema Neuro: SENSORIUM/ORIENTATION: Yes oriented to person, Yes oriented to place and Yes oriented to time Skin: COMMON NORMALS: no rashes or lesions noted GENERAL SKIN EXAM: no rashes or lesions noted Course Vital Signs: Vital signs: Vital Signs Temperature 98.3 F 07/03/22 09:00 Pulse Rate 55 L 07/03/22 10:34 Respiratory Rate 19 H 07/03/22 10:34 Blood Pressure 133/74 07/03/22 10:34 Pulse Oximetry 97 07/03/22 10:34 Oxygen Delivery Me thod 07/03/22 09:30 [facility] - General Adult Medical Decision Making Patient presents complaining of urinary retention. He is 2 weeks postop lap assisted VATS Hyster. CT done 1 week ago was unremarkable her exam today is be nign labs are now normal. Her vital signs are all stable. I talked to Dr. Tafoya who is on-call for [facility] neither of us feel at this point that there is indication for advanced imaging. Dr. Tafoya advised that because of the surgery and repair this is still sensation of urinating will be quite different. Patient was offered and accepted a catheter. Although on postvoid residual there is only 104 mL. Catheter placed patient discharged home she is to follow- up with gynecology next week. Medical Records I reviewed the patient's medical records. Lab Data I reviewed the patient's lab results. : 07/03/22 08:30 07/03/22 08:30 Laboratory Results WBC 11.0 10^3/uL (4.0-10.0) H 07/03/22 08:30 RBC 4.19 10^6/uL (4.1-5.3) 07/03/22 08:30 Hgb 12.5 g/dL (11.5-15.3) 07/03/22 08:30 Hct 40.3 % (37.0-47.0) 07/03/22 08:30 MCV 96.2 fl (81-99) 07/03/22 08:30 MCH 29.8 pg (28.0-34.0) 07/03/22 08:30 MCHC 31.0 g/dL (30.0-36.0) 07/03/22 08:30 RDW 13.2 % (12.1-15.1) 07/03/22 08:30 Plt Count 228 10^3/cmm (130-400) 07/03/22 08:30 MPV 11.3 fL (7.4-10.4) H 07/03/22 08:30 Neut % (Auto) 77.8 % 07/03/22 08:30 Lymph % (Auto) 15.5 % 07/03/22 08:30 [place] % (Auto) 5.0 % 07/03/22 08:30 Eos % (Auto) 0.8 % 07/03/22 08:30 Baso % (Auto) 0.6 % 07/03/22 08:30 Neut # (Auto) 8.55 10^3/uL (1.8-7.7) H 07/03/22 08:30 Lymph # (Auto) 1.7 10^3/uL (0.8-4.8) 07/03/22 08:30 [place] # (Auto) 0.6 10^3/uL (0.2-0.9) 07/03/22 08:30 Eos # (Auto) 0.1 10^3/uL (0.0-0.8) 07/03/22 08:30 Baso # (Auto) 0.1 10^3/uL (0.0-0.1) 07/03/22 08:30 Nucleated RBC % (auto) 0 % 07/03/22 08:30 Nucleated RBCs # 0.0 /100WBC 07/03/22 08:30 Sodium 137 mmol/L (136-145) 07/03/22 08:30 Potassium 4.4 mmol/L (3.5-5.1) 07/03/22 08:30 Chloride 103 mmol/L (98-107) 07/03/22 08:30 Carbon Dioxide 22 mmol/L (22-29) 07/03/22 08:30 Anion Gap 16.4 (5-19) 07/03/22 08:30 BUN 13 mg/dL (6-20) 07/03/22 08:30 Creatinine 1.0 mg/dL (0.5-0.9) H 07/03/22 08:30 GFR Calculation 59.2 mL/min (90-130) L 07/03/22 08:30 Glucose 98 mg/dL (65-115) 07/03/22 08:30 Calculated Osmolality 284 mOsm/kg (285-295) L 07/03/22 08:30 Calcium 9.3 mg/dL (8.5-10.5) 07/03/22 08:30 Total Bilirubin 0.3 mg/dL (0.15-1.2) 07/03/22 08:30 AST 10 U/L (0-32) 07/03/22 08:30 ALT 7 U/L (0-33) 07/03/22 08:30 Alkaline Phosphatase 107 IU/L (35-105) H 07/03/22 08:30 Total Protein 6.2 g/dL (6.6-8.7) L 07/03/22 08:30 Albumin 3.5 g/dL (3.5-5.2) 07/03/22 08:30 Globulin 2.7 g/dL (1.3-4.6) 07/03/22 08:30 Urine Color Yellow (Yellow) 07/03/22 08:15 Urine Appearance Clear (CLEAR) 07/03/22 08:15 Urine pH 5 (5-7) 07/03/22 08:15 Ur Specific [place] 1.015 (1.005-1.030) 07/03/22 08:15 Urine Protein Neg (Negative) 07/03/22 08:15 Urine Glucose (UA) Norm (Normal) 07/03/22 08:15 Urine Ketones Negative (Negative) 07/03/22 08:15 Urine Blood Neg (Negative) 07/03/22 08:15 Urine Nitrate Negative (Negative) 07/03/22 08:15 Urine Bilirubin Neg (Negative) 07/03/22 08:15 Urine Urobilinogen Norm mg/dL (Negative) 07/03/22 08:15 Ur Leukocyte Esterase Negative (Negative) 07/03/22 08:15 Discharge Plan Discharge Patient Disposition: Home Clinical Impression: Postoperative pain, Acute urinary retention Condition: Stable Prescriptions: No Action lisinopril 10 mg tablet 5 mg PO BEDTIME atorvastatin 40 mg tablet 40 mg PO BEDTIME pantoprazole 40 mg tablet,delayed release (DR/EC) 40 mg PO QAM Qty: 90 3RF hydrocodone-acetaminophen 5-325 mg tablet 1 tab PO Q4H PRN (Reason: pain) 3 Days Qty: 10 0RF acetaminophen 325 mg capsule 325 mg PO Q4H PRN (Reason: fever or pain) Qty: 60 0RF docusate sodium [Colace] 100 mg capsule 100 mg PO BID Qty: 30 0RF simethicone [Gas-X] 80 mg Tablet,Chewable 80 mg PO DAILY ibuprofen 800 mg tablet 800 mg PO TID Discharge Orders: Discharge ED (Routine); Ordered 07/03/22 Ordered By: Washington Henao Referrals: Maricruz Poole PA-C [Primary Care Provider] - Patient Instructions: Opioid Safety Activity Restrictions/Additional Instructions: Follow-up with gynecology on July 07 as scheduled. They will discuss with you when you will be able to remove the Laughlin catheter. Coding Level of Care Code ED Endoscopy Tech for Baldo Sargent
[2022-07-03 08:51] LABS: Basophils # 0.1 10^3/uL (0.0-0.1); Basophils % 0.6 %; Eosinophils # 0.1 10^3/uL (0.0-0.8); Eosinophils % 0.8 %; Hematocrit 40.3 % (37.0-47.0); Hemoglobin 12.5 g/dL (11.5-15.3); Lymphocytes # 1.7 10^3/uL (0.8-4.8); Lymphocytes % 15.5 %; Mean Corpuscular Hemoglobin 29.8 pg (28.0-34.0); Mean Corpuscular Volume 96.2 fl (81-99); Mean Platelet Volume 11.3 fL (7.4-10.4); Monocytes # 0.6 10^3/uL (0.2-0.9); Neutrophils # 8.55 10^3/uL (1.8-7.7); Neutrophils % 77.8 %; Nucleated Red Blood Cells % 0 %; Platelet Count 228 10^3/cmm (130-400); Red Blood Count 4.19 10^6/uL (4.1-5.3); Red Cell Distribution Width 13.2 % (12.1-15.1)
[2022-07-03 09:00] VITALS: BP 136/82; PULSE 60; RESP 17; TEMP 36.8; O2SAT 97
[2022-07-03 09:15] LABS: Add Urine Microscopic? NO; Charge for UA Resulting for Rev
[2022-07-03 09:16] LABS: Bilirubin Urine Neg (Negative); Blood Urine Neg (Negative); Glucose Urine UA Norm (Normal); Ketones Urine Negative (Negative); Leukocyte Esterase Urine Negative (Negative); Nitrate Urine Negative (Negative); Protein Urine Neg (Negative); Specific Gravity, Urine 1.015 (1.005-1.030); Urine Appearance Clear (CLEAR); Urine Color Yellow (Yellow); Urobilinogen Urine Norm (Negative); pH Urine 5 (5-7)
[2022-07-03 09:21] LABS: Alanine Aminotransferase 7 U/L (0-33); Albumin Level 3.5 g/dL (3.5-5.2); Alkaline Phosphatase 107 IU/L (35-105); Blood Urea Nitrogen 13 mg/dL (6-20); Calcium 9.3 mg/dL (8.5-10.5); Carbon Dioxide 22 mmol/L (22-29); Chloride 103 mmol/L (98-107); Globulin 2.7 g/dL (1.3-4.6); Glomerular Filtration Rate 59.2 mL/min (90-130); Glucose 98 mg/dL (65-115); Osmolality Calculated 284 mOsm/kg (285-295); Sodium 137 mmol/L (136-145); Total Bilirubin 0.3 mg/dL (0.15-1.2); Total Protein 6.2 g/dL (6.6-8.7)
[2022-07-03 09:23] LABS: Anion Gap 16.4 (5-19); Aspartate Amino Transferase 10 U/L (0-32); Potassium 4.4 mmol/L (3.5-5.1)
[2022-07-03 09:30] VITALS: BP 129/85; PULSE 57; RESP 16; O2SAT 99
[2022-07-03 10:34] VITALS: BP 133/74; PULSE 55; RESP 19; O2SAT 97
== END 2022-07-03 10:18 | disposition home or self-care (01) ==
PROVIDERS: Emergency Provider Family Medicine; PCP Physician Assistant
DX: G89.18 Other acute postprocedural pain (principal); R33.9 Retention of urine, unspecified
CPT/HCPCS: 51702; 51798; 80053; 81003; 85025; 99283

== ENCOUNTER 2022-07-04 05:49 | Emergency (ER) | payer BC, SELFPAY ==
[2022-07-04 06:05] VITALS: BP 145/89; PULSE 76; RESP 18; TEMP 36.3; O2SAT 94; BMI 32.5
--- NOTE | 2022-07-04 06:15 | W.ED.FEMALGU ---
HPI - Female Genitourinary General: Chief complaint: Urogenital-Female Stated complaint: Cathater is leaking Time Seen by Provider: 07/04/22 06:02 Source: patient Mode of arrival: ambulatory History of Present Illness: 46-year-old female presents emergency room with complaints of leaking a Laughlin catheter was placed yesterday in the emergency room. No fever sweats chills no bloody drainage from the catheter. States she woke up this morning and is large amount of leakage from the catheter. Patient was seen yesterday was complaining of urinary retention although on postvoid residuals feeling at 104 mL. After consultation with Roopa we offered her a catheter. She states the pain was worse last night. UA done yesterday was negative. MD elicited complaint: pelvic pain and other (Urinary retention) Pertinent past history: other (2 weeks status post laparoscopic assisted hysterectomy) Onset (ago): week(s) Location of symptoms: urethra Severity: mild Quality of pain: cramping Consistency: constant Urinary symptoms: Difficulty Urinating Exacerbating factors: none Relieving factors: none Associated symptoms: Deny abdominal pain, short of breath, fevers/chills, headache(s), nausea, rash, seizures, syncope, vaginal bleeding, vaginal discharge or weakness Treatment prior to arrival: none Review of Systems Const: Denies: fever(s), chills, body aches, change in appetite, fatigue or malaise ENMT: Denies: throat pain, ear or mastoid pain, nasal discharge or nasal congestion Card: Denies: chest pain or syncope Resp: Denies: dyspnea, productive cough or non-productive cough GI: Denies: abdominal pain or nausea : Denies: vaginal discharge Skin/Breast: Denies: rash or pruritus Neuro: Denies: headache(s) PFS ED PFSH: Medical History GERD (gastroesophageal reflux disease) Family History Family/Other Breast cancer maternal great aunt, 40's Colon cancer maternal aunt, 60's Mother Diabetes Hyperlipidemia Hypertension Stroke Thyroid condition Heart disease Sister Uterine cancer 20's Denies family history of Ovarian cancer Physical Exam Const: COMMON NORMALS: no acute distress GENERAL APPEARANCE: cooperative and comfortable ORIENTATION/CONSCIOUSNESS: Yes awake, Yes oriented to person, Yes oriented to place and Yes oriented to time HENMT: COMMON NORMALS: normocephalic, atraumatic and hearing grossly normal bilaterally HEAD & SCALP: normocephalic and atraumatic Resp: COMMON NORMALS: normal respiratory effort, No retractions, No use of accessory muscles and clear to auscultation bilaterally AUSCULTATION: clear to auscultation bilaterally Cardio: COMMON NORMALS: regular rate, regular rhythm and No murmurs present (Cardio) RATE: regular rate RHYTHM: regular rhythm GI: COMMON NORMALS: Soft to palpation and No hepatosplenomegaly present AUSCULTATION: Yes normoactive bowel sounds PALPATION: Yes Soft to palpation, No Tenderness to palpation present (GI), No Guarding due to palpation present (GI) and Yes No hepatosplenomegaly present : SPECULUM EXAM - VAGINA: No vaginal bleeding OB/EXTERNAL & SPECULUM: No vaginal bleeding Extremity: COMMON NORMALS: normal to inspection, capillary refill normal, no clubbing, cyanosis or edema, no calf tenderness and no pedal edema Neuro: SENSORIUM/ORIENTATION: Yes oriented to person, Yes oriented to place and Yes oriented to time Course Vital Signs: Vital signs: Vital Signs Temperature 97.4 F L 07/04/22 06:05 Pulse Rate 85 07/04/22 08:10 Respiratory Rate 21 H 07/04/22 08:10 Blood Pressure 139/88 07/04/22 08:10 Pulse Oximetry 98 07/04/22 08:10 Oxygen Delivery Me thod 07/04/22 08:10 MDM - Female Medical Decision Making Patient is insisting on having a new catheter placed. Nursing staff irrigated the catheter it was able to flush and draw without any difficulty. There is no blood-tinged urine there is a tiny amount of sediment in the urine bag but does not appear to be blood the urine in the bag is otherwise clear. Discussed with the patient that it is unlikely that changing the catheter will make any difference when we irrigated there was no leakage around the catheter. I think this is coming from bladder spasms. Her exam and her vitals otherwise continue to be normal. I discussed with Dr. Forte. Ultimately decided to start the Pyridium and oxybutynin. I discussed with the patient about whether or not to leave the Laughlin in place some concern that the Laughlin itself is actually precipitating more discomfort she is convinced she will be unable to void completely without it discussed with her that last time she was here when we did the postvoid residual she only had 100 residual. Ultimately she decided to leave it in. We will go ahead and discharge her home with the oxybutynin and Pyridium she can follow-up as a walk-in on Wednesday morning with [facility] if she feels her symptoms are still not controlled otherwise she has a scheduled appointment the following day on 07/07/2022. Discussed strict return instructions if her symptoms worsen. Medical Records I reviewed the patient's medical records. Lab Data I reviewed the patient's lab results. : 07/04/22 07:22 07/04/22 07: Laboratory Results WBC 9.7 10^3/uL (4.0-10.0) 07/04/22 07: RBC 4.12 10^6/uL (4.1-5.3) 07/04/22 07: Hgb 12.2 g/dL (11.5-15.3) 07/04/22 07: Hct 36.0 % (37.0-47.0) L 07/04/22 07: MCV 87.4 fl (81-99) D 07/04/22 07:22 MCH 29.6 pg (28.0-34.0) 07/04/22 07:22 MCHC 33.9 g/dL (30.0-36.0) D 07/04/22 07: RDW 13.2 % (12.1-15.1) 07/04/22 07: Plt Count 267 10^3/cmm (130-400) 07/04/22 07: MPV 10.9 fL (7.4-10.4) H 07/04/22 07: Neut % (Auto) 75.6 % 07/04/22 07:22 Lymph % (Auto) 17.4 % 07/04/22 07:22 [place] % (Auto) 5.0 % 07/04/22 07:22 Eos % (Auto) 1.0 % 07/04/22 07:22 Baso % (Auto) 0.6 % 07/04/22 07:22 Neut # (Auto) 7.32 10^3/uL (1.8-7.7) 07/04/22 07:22 Lymph # (Auto) 1.7 10^3/uL (0.8-4.8) 07/04/22 07:22 [place] # (Auto) 0.5 10^3/uL (0.2-0.9) 07/04/22 07:22 Eos # (Auto) 0.1 10^3/uL (0.0-0.8) 07/04/22 07:22 Baso # (Auto) 0.1 10^3/uL (0.0-0.1) 07/04/22 07:22 Nucleated RBC % (auto) 0 % 07/04/22 07: Nucleated RBCs # 0.0 /100WBC 07/04/22 07:22 Sodium 141 mmol/L (136-145) 07/04/22 07:22 Potassium 4.0 mmol/L (3.5-5.1) 07/04/22 07:22 Chloride 105 mmol/L (98-107) 07/04/22 07:22 Carbon Dioxide 25 mmol/L (22-29) 07/04/22 07:22 Anion Gap 15.0 (5-19) 07/04/22 07:22 BUN 15 mg/dL (6-20) 07/04/22 07:22 Creatinine 0.9 mg/dL (0.5-0.9) 07/04/22 07:22 GFR Calculation 66.8 mL/min (90-130) L 07/04/22 07:22 Glucose 117 mg/dL (65-115) H 07/04/22 07:22 Calculated Osmolality 294 mOsm/kg (285-295) 07/04/22 07:22 Calcium 9.0 mg/dL (8.5-10.5) 07/04/22 07:22 Urine Color Yellow (Yellow) 07/04/22 08:20 Urine Appearance Clear (CLEAR) 07/04/22 08:20 Urine pH 5 (5-7) 07/04/22 08:20 Ur Specific [place] 1.005 (1.005-1.030) 07/04/22 08:20 Urine Protein Trace (Negative) 07/04/22 08:20 Urine Glucose (UA) Norm (Normal) 07/04/22 08:20 Urine Ketones Negative (Negative) 07/04/22 08:20 Urine Blood Neg (Negative) 07/04/22 08:20 Urine Nitrate Negative (Negative) 07/04/22 08:20 Urine Bilirubin 1+ (Negative) H 07/04/22 08:20 Urine Urobilinogen 1 mg/dL (Negative) H 07/04/22 08:20 Ur Leukocyte Esterase Negative (Negative) 07/04/22 08:20 Urine RBC None /hpf (0-2) 07/04/22 08:20 Urine WBC Rare /hpf (0-5) 07/04/22 08:20 Ur Squamous Epith Cells None /hpf (0-5) 07/04/22 08:20 Uric Acid Crystals 0-4 /hpf 07/04/22 08:20 Amorphous Sediment Not Reportable 07/04/22 08:20 Urine Bacteria Trace /hpf (NONE) 07/04/22 08:20 Urine Mucus Trace /hpf 07/04/22 08:20 Discharge Plan Discharge Patient Disposition: Home Clinical Impression: Status post hysterectomy with oophorectomy, Postoperative pain, Acute urinary retention Condition: Stable Prescriptions: New Pyridium 200 mg tablet 200 mg PO Q8H PRN (Reason: pain) Qty: 14 0RF oxybutynin chloride 5 mg tablet extended release 24 hr 5 mg PO DAILY Qty: 5 0RF No Action lisinopril 10 mg tablet 5 mg PO BEDTIME atorvastatin 40 mg tablet 40 mg PO BEDTIME pantoprazole 40 mg tablet,delayed release (DR/EC) 40 mg PO QAM Qty: 90 3RF hydrocodone-acetaminophen 5-325 mg tablet 1 tab PO Q4H PRN (Reason: pain) 3 Days Qty: 10 0RF acetaminophen 325 mg capsule 325 mg PO Q4H PRN (Reason: fever or pain) Qty: 60 0RF docusate sodium [Colace] 100 mg capsule 100 mg PO BID Qty: 30 0RF simethicone [Gas-X] 80 mg Tablet,Chewable 80 mg PO DAILY ibuprofen 800 mg tablet 800 mg PO TID Discharge Orders: Discharge ED (Routine); Ordered 07/04/22 Ordered By: Washington Henao Referrals: Maricruz Poole PA-C [Primary Care Provider] - Discharge Diet: Usual diet Discharge Activity: Increase activity as tolerated Patient Instructions: Opioid Safety Activity Restrictions/Additional Instructions: Keep your follow-up appointment on July [address] Funez. If you have continued difficulties to the weekend recommend you follow-up Wednesday morning at the gynecology clinic. If severe you can return to the emergency room. Coding Level of Care Code ED Bunch Breaker Machine Operator for Chg Fwd Exam Detailed
--- NOTE | 2022-07-04 06:29 | PC.NURSE ---
Irrigated urinary catheter with total of 120 cc normal saline. Catheter flow is clear with no sign or symptom of blood or sediment. I then used the bladder scanner to scan for residual urine. no residual urine noted. Pt. states that she is having pain from suprapubic area that travels to her epigastric area.
[2022-07-04] MEDS: phenazopyridine 100 mg Tablet 200 MG PO (07:31)
[2022-07-04 07:33] LABS: Basophils # 0.1 10^3/uL (0.0-0.1); Basophils % 0.6 %; Eosinophils # 0.1 10^3/uL (0.0-0.8); Hemoglobin 12.2 g/dL (11.5-15.3); Lymphocytes # 1.7 10^3/uL (0.8-4.8); Lymphocytes % 17.4 %; Mean Corpuscular HGB Conc 33.9 g/dL (30.0-36.0); Mean Corpuscular Hemoglobin 29.6 pg (28.0-34.0); Mean Corpuscular Volume 87.4 fl (81-99); Mean Platelet Volume 10.9 fL (7.4-10.4); Monocytes # 0.5 10^3/uL (0.2-0.9); Neutrophils # 7.32 10^3/uL (1.8-7.7); Neutrophils % 75.6 %; Nucleated Red Blood Cells % 0 %; Platelet Count 267 10^3/cmm (130-400); Red Blood Count 4.12 10^6/uL (4.1-5.3); Red Cell Distribution Width 13.2 % (12.1-15.1); White Blood Count 9.7 10^3/uL (4.0-10.0)
[2022-07-04 07:55] LABS: Blood Urea Nitrogen 15 mg/dL (6-20); Carbon Dioxide 25 mmol/L (22-29); Chloride 105 mmol/L (98-107); Glomerular Filtration Rate 66.8 mL/min (90-130); Glucose 117 mg/dL (65-115); Osmolality Calculated 294 mOsm/kg (285-295); Sodium 141 mmol/L (136-145)
[2022-07-04 08:10] VITALS: BP 139/88; PULSE 85; RESP 21; O2SAT 98
[2022-07-04 08:51] LABS: Add Urine Microscopic? YES; Bilirubin Urine 1+ (Negative); Blood Urine Neg (Negative); Glucose Urine UA Norm (Normal); Ketones Urine Negative (Negative); Leukocyte Esterase Urine Negative (Negative); Nitrate Urine Negative (Negative); Protein Urine Trace (Negative); Specific Gravity, Urine 1.005 (1.005-1.030); Urine Appearance Clear (CLEAR); Urine Color Yellow (Yellow); Urobilinogen Urine 1 mg/dL (Negative); pH Urine 5 (5-7)
[2022-07-04 08:52] LABS: Bacteria Urine TRACE /hpf; Mucus Urine TRACE /hpf; WBC Urine RARE /hpf (0-5)
[2022-07-04 08:53] LABS: Add Urine Culture? No; Uric Acid Crystals Urine 0-4 /hpf
[2022-07-04] MEDS: oxybutynin 5 mg Tablet PO (09:00)
== END 2022-07-04 09:04 | disposition home or self-care (01) ==
PROVIDERS: Emergency Provider Family Medicine; PCP Physician Assistant
DX: G89.18 Other acute postprocedural pain (principal); R33.9 Retention of urine, unspecified; Z90.710 Acquired absence of both cervix and uterus
CPT/HCPCS: 36415; 80048; 81001; 85025; 99284

== ENCOUNTER 2022-07-11 13:59 | Inpatient (IN) | payer BC, SELFPAY ==
[2022-07-11 14:04] VITALS: BP 129/82; PULSE 102; RESP 16; TEMP 36.4; O2SAT 98
[2022-07-11 14:39] LABS: Basophils # 0.1 10^3/uL (0.0-0.1); Basophils % 0.5 %; Eosinophils # 0.1 10^3/uL (0.0-0.8); Eosinophils % 1.1 %; Hematocrit 43.8 % (37.0-47.0); Hemoglobin 13.7 g/dL (11.5-15.3); Lymphocytes # 1.9 10^3/uL (0.8-4.8); Lymphocytes % 18.2 %; Mean Corpuscular HGB Conc 31.3 g/dL (30.0-36.0); Mean Corpuscular Volume 89.4 fl (81-99); Mean Platelet Volume 11.8 fL (7.4-10.4); Monocytes # 0.6 10^3/uL (0.2-0.9); Neutrophils # 7.85 10^3/uL (1.8-7.7); Neutrophils % 73.7 %; Nucleated Red Blood Cells % 0 %; Platelet Count 314 10^3/cmm (130-400); Red Cell Distribution Width 13.2 % (12.1-15.1); White Blood Count 10.7 10^3/uL (4.0-10.0)
--- NOTE | 2022-07-11 14:40 | W.ED.GENADLT ---
HPI - General Adult General: Chief complaint: Urogenital-Female Stated complaint: posthysterectomy/bleeding Time Seen by Provider: 07/11/22 14:20 History of Present Illness: She is a 46-year-old female with a recent hysterectomy 06/18/[address] Funez presenting to the emergency room for concerns of dysuria and gross hematuria after removal of her Laughlin catheter. Patient was seen and evaluated 07/03/2022 for concerns of urinary retention. Patient had a Laughlin that was placed at that time. Shortly after placement Laughlin, patient had periurethral leakage and followed up with Dr. Negrete on 07/05/2022 for replacement of Laughlin. Patient then had her Laughlin removed on 07/07/2022. For the last 2 days since patient was seen and evaluated, patient has had gross hematuria and inability to fully void. Patient tells me that she sometimes cannot control her bladder. Patient denies any problem with stooling or saddle anesthesia. Patient denies any weakness in the lower extremity. Patient denies any fever reports low-grade chills. Patient has chronically had lower abdominal pain since the surgery on 06/18/2022 has not worsened. Patient denies any new vaginal discharge or vaginal bleeding. Patient says that her incisions are well-healing. Patient denies any other focal abdominal pain, nausea/vomiting, chest pain, shortness breath, palpitation, fever or chills, cough, runny nose or sore throat. No sick contacts around her. Onset: 2 days ago Duration:2 days Location:home Severity:moderate Associated symptoms: Deny chest pain, dyspnea, nausea, rash, palpitations or vomiting Review of Systems Const: Denies: fever(s) or chills Eyes: Denies: change in vision ENMT: Denies: mouth pain Card: Denies: chest pain or palpitations Resp: Denies: dyspnea or non-productive cough GI: Reports: abdominal pain (+lower abd pain); Denies: nausea, vomiting or diarrhea : Reports: other (+gross hematuria) Musc: Denies: extremity pain Skin/Breast: Denies: rash or new lesions Neuro: Denies: weakness in extremities Psych: Reports: other (Normal mood) Barrera/Lymph: Denies: easy bruising PFSH ED PFSH: Medical History GERD (gastroesophageal reflux disease) Family History Family/Other Breast cancer maternal great aunt, 40's Colon cancer maternal aunt, 60's Mother Diabetes Hyperlipidemia Hypertension Stroke Thyroid condition Heart disease Sister Uterine cancer 20's Denies family history of Ovarian cancer Social History Smoking and tobacco status: current every day smoker Physical Exam Const: COMMON NORMALS: alert HENMT: COMMON NORMALS: atraumatic HEAD & SCALP: atraumatic MOUTH: moist mucous membranes not abnormal Eye: COMMON NORMALS: EOMs intact bilaterally and conjunctivae normal CONJUNCTIVA: Yes conjunctivae normal Neck/C-Spine: COMMON NORMALS: full ROM and supple Resp: COMMON NORMALS: normal respiratory effort and clear to auscultation bilaterally AUSCULTATION: clear to auscultation bilaterally Cardio: COMMON NORMALS: regular rate RATE: regular rate GI: COMMON NORMALS: Soft to palpation PALPATION: Yes Soft to palpation OTHER: +mild b/l lower abd TTP. NO guarding rebound, guarding, rigidity. No CVA tenderness to percussion. Neg Barnes/Neg McBurney's point tenderness, no suprabupic tenderness to palpation. Extremity: COMMON NORMALS: full ROM Neuro: SENSORIUM/ORIENTATION: Yes alert MOTOR EXAM: No Abnormal motor strength present and Other motor observations present (no focal motor deficits) Psych: COMMON NORMALS: speech normal SPEECH: Yes normal speech MOOD & AFFECT: Yes euthymic mood Course Vital Signs: Vital signs: Vital Signs Temperature 97.5 F L 07/11/22 14:04 Pulse Rate 75 07/11/22 15:54 Respiratory Rate 18 07/11/22 15:54 Blood Pressure 118/70 07/11/22 15:54 Pulse Oximetry 98 07/11/22 15:54 Oxygen Delivery Me thod 07/11/22 14:04 [facility] - General Adult Medical Decision Making 46-year-old female with history of recent hysterectomy on 06/18/2022 presenting to the emergency room for evaluation of gross hematuria and dysuria since yesterday. Patient has had 2 Laughlin change in the last 2 weeks. Most recently, patient was DC'd on Laughlin on 07/07/2022. On exam, patient has mild tenderness palpation in the lower abdomen. Patient is afebrile, no guarding or rebound tenderness. HDS. Patient is noted to have white count 10.7. Lab unremarkable UA is indeterminate for UTI. CT abdomen showed pelvic abscess. Discussed case with Dr. Singleton who recommended IV antibiotics at this time and admission for close observation. Patient received Unasyn, clindamycin, and gentamicin. Patient will be admitted to hospital for further observation. HDS in no acute pain. Disposition: admission Lab Data : 07/11/22 14:24 07/11/22 14:24 Radiology Impressions Abdomen/Pelvis CT 07/11/22 15:10 IMPRESSION: 1. Pelvic abscess. 2. Small hiatal hernia. Laboratory Results WBC 10.7 10^3/uL (4.0-10.0) H 07/11/22 14:24 RBC 4.90 10^6/uL (4.1-5.3) 07/11/22 14:24 Hgb 13.7 g/dL (11.5-15.3) 07/11/22 14:24 Hct 43.8 % (37.0-47.0) 07/11/22 14:24 MCV 89.4 fl (81-99) 07/11/22 14:24 MCH 28.0 pg (28.0-34.0) 07/11/22 14:24 MCHC 31.3 g/dL (30.0-36.0) 07/11/22 14:24 RDW 13.2 % (12.1-15.1) 07/11/22 14:24 Plt Count 314 10^3/cmm (130-400) 07/11/22 14:24 MPV 11.8 fL (7.4-10.4) H 07/11/22 14:24 Neut % (Auto) 73.7 % 07/11/22 14:24 Lymph % (Auto) 18.2 % 07/11/22 14:24 [place] % (Auto) 6.0 % 07/11/22 14:24 Eos % (Auto) 1.1 % 07/11/22 14:24 Baso % (Auto) 0.5 % 07/11/22 14:24 Neut # (Auto) 7.85 10^3/uL (1.8-7.7) H 07/11/22 14:24 Lymph # (Auto) 1.9 10^3/uL (0.8-4.8) 07/11/22 14:24 [place] # (Auto) 0.6 10^3/uL (0.2-0.9) 07/11/22 14:24 Eos # (Auto) 0.1 10^3/uL (0.0-0.8) 07/11/22 14:24 Baso # (Auto) 0.1 10^3/uL (0.0-0.1) 07/11/22 14:24 Nucleated RBC % (auto) 0 % 07/11/22 14:24 Nucleated RBCs # 0.0 /100WBC 07/11/22 14:24 PT 13.70 SECONDS (12.1-14.9) 07/11/22 14:24 INR 1.02 (0.8-1.2) 07/11/22 14:24 APTT 24.5 SECONDS (23.9-36.7) 07/11/22 14:24 Sodium 139 mmol/L (136-145) 07/11/22 14:24 Potassium 4.4 mmol/L (3.5-5.1) 07/11/22 14:24 Chloride 99 mmol/L (98-107) 07/11/22 14:24 Carbon Dioxide 26 mmol/L (22-29) 07/11/22 14:24 Anion Gap 18.4 (5-19) 07/11/22 14:24 BUN 10 mg/dL (6-20) 07/11/22 14:24 Creatinine 0.7 mg/dL (0.5-0.9) 07/11/22 14:24 GFR Calculation 89.3 mL/min (90-130) L 07/11/22 14:24 Glucose 99 mg/dL (65-115) 07/11/22 14:24 Calculated Osmolality 287 mOsm/kg (285-295) 07/11/22 14:24 Calcium 9.4 mg/dL (8.5-10.5) 07/11/22 14:24 Total Bilirubin 0.2 mg/dL (0.15-1.2) 07/11/22 14:24 AST 15 U/L (0-32) 07/11/22 14:24 ALT 17 U/L (0-33) 07/11/22 14:24 Alkaline Phosphatase 150 IU/L (35-105) H 07/11/22 14:24 Total Protein 7.5 g/dL (6.6-8.7) 07/11/22 14:24 Albumin 4.1 g/dL (3.5-5.2) 07/11/22 14:24 Globulin 3.4 g/dL (1.3-4.6) 07/11/22 14:24 Lipase 23 U/L (13-60) 07/11/22 14:24 Urine Color Yellow (Yellow) 07/11/22 14:24 Urine Appearance Sl hazy (CLEAR) 07/11/22 14:24 Urine pH 5 (5-7) 07/11/22 14:24 Ur Specific [place] 1.025 (1.005-1.030) 07/11/22 14:24 Urine Protein Neg (Negative) 07/11/22 14:24 Urine Glucose (UA) Norm (Normal) 07/11/22 14:24 Urine Ketones 1+ (Negative) H 07/11/22 14:24 Urine Blood 2+ (Negative) H 07/11/22 14:24 Urine Nitrate Negative (Negative) 07/11/22 14:24 Urine Bilirubin Neg (Negative) 07/11/22 14:24 Urine Urobilinogen 1 mg/dL (Negative) H 07/11/22 14:24 Ur Leukocyte Esterase 1+ (Negative) H 07/11/22 14:24 Urine RBC 5-10 /hpf (0-2) H 07/11/22 14:24 Urine WBC 15-25 /hpf (0-5) H 07/11/22 14:24 Ur Squamous Epith Cells Rare /hpf (0-5) 07/11/22 14:24 Calcium Oxalate Crystal 0-4 /hpf H 07/11/22 14:24 Amorphous Sediment Not Reportable 07/11/22 14:24 Urine Bacteria 1+ /hpf (NONE) H 07/11/22 14:24 Urine Mucus 2+ /hpf 07/11/22 14:24 Imaging Data Other Imaging: Radiologist's impression: [address] [address] [address] Scan Report Signed Patient: DarshanShankar [id number] [facility] 1975 [id number] Age/Sex: 46 / F ADM Date: 07/11/22 Loc: ER Room/Bed: Attending Dr: Ordering Provider/Ordering MD: Domenic Dillard MD Date of Service: 07/11/22 Procedure(s): CT abdomen pelvis w con* [id number] Accession Number(s): [id number] Report Number: [id number] PROCEDURE INFORMATION: Exam: CT Abdomen And Pelvis With Contrast Exam date and time: 07/11/2022 3:29 PM Age: 46 years old Clinical indication: Other: Blood in urine; Prior surgery; Surgery date: <1 month; Surgery type: Post hyster 3wks; Additional info: Lower abd pain TECHNIQUE: Imaging protocol: Computed tomography of the abdomen and pelvis with contrast. Radiation optimization: All CT scans at this facility use at least one of these dose optimization techniques: automated exposure control; mA and/or kV adjustment per patient size (includes targeted exams where dose is matched to clinical indication); or iterative reconstruction. Contrast material: OMNI 350; Contrast volume: 95 ml; Contrast route: INTRAVENOUS (IV);? COMPARISON: CT abdomen pelvis wo con [id number] 06/25/2022 4:49 AM RADIATION DOSE METRICS: Total DLP (mGy-cm): 771.34 FINDINGS: Diaphragm: A small hiatal hernia is present. Liver: Normal. No mass. Gallbladder and bile ducts: Normal. No calcified stones. No ductal dilation. Pancreas: Normal. No ductal dilation. Spleen: Normal. No splenomegaly. Adrenal glands: Normal. No mass. Kidneys and ureters: Left kidney dual collecting system is appreciated which joins in the pelvis. The superior pole moiety of the left kidney demonstrates mild hydronephrosis. The right kidney appears normal. No renal stone is visualized. Stomach and bowel: Unremarkable. No obstruction. No mucosal thickening. Appendix: The appendix is normal. Intraperitoneal space: Unremarkable. No free air. No significant fluid collection. Vasculature: Unremarkable. No abdominal aortic aneurysm. Lymph nodes: Unremarkable. No enlarged lymph nodes. Urinary bladder: Unremarkable as visualized. Reproductive: The uterus has been resected. A 4.8 x 4.9 cm abscess is present in the pelvis adjacent to the vaginal cuff. A small amount of fluid and air are seen in the vagina. Bones/joints: Unremarkable. No acute fracture. Soft tissues: Unremarkable. CT/CT abdomen pelvis w con* [id number] IMPRESSION: 1. Pelvic abscess. 2. Small hiatal hernia. ? Dictated By: Adam Barcenas MD Signed By: Adam Barcenas MD Signed Date/Time: 07/11/22 1617 DD/ 1529 Discharge Plan Discharge Patient Disposition: Admitted As Inpatient Admit Provider: Abdulkadir Funez Clinical Impression: Abscess of pelvis Condition: Stable Coding Level of Care Code ED Circus Agent for Chg Fwd Exam Comprehensive
[2022-07-11 14:45] LABS: Urine Color Yellow (Yellow)
[2022-07-11 14:46] LABS: Add Urine Microscopic? YES; Bilirubin Urine Neg (Negative); Blood Urine 2+ (Negative); Glucose Urine UA Norm (Normal); Ketones Urine 1+ (Negative); Leukocyte Esterase Urine 1+ (Negative); Nitrate Urine Negative (Negative); Protein Urine Neg (Negative); Specific Gravity, Urine 1.025 (1.005-1.030); Urine Appearance SL Hazy (CLEAR); Urobilinogen Urine 1 mg/dL (Negative); pH Urine 5 (5-7)
[2022-07-11 14:49] LABS: WBC Urine 15-25 /hpf (0-5)
[2022-07-11 14:50] LABS: Bacteria Urine 1+ /hpf; Calcium Oxalate Crystals Urine 0-4 /hpf; Mucus Urine 2+ /hpf; Squamous Epithelial Cell Urine RARE /hpf (0-5)
[2022-07-11 14:52] LABS: Add Urine Culture? Yes
[2022-07-11 14:54] LABS: INR 1.02 (0.8-1.2)
[2022-07-11 14:56] LABS: Partial Thromboplastin Time 24.5 SECONDS (23.9-36.7)
[2022-07-11] MEDS: sodium chloride 0.9% 1,000 ML 999 ML IV (15:00)
[2022-07-11 15:08] LABS: Alanine Aminotransferase 17 U/L (0-33); Albumin Level 4.1 g/dL (3.5-5.2); Alkaline Phosphatase 150 IU/L (35-105); Blood Urea Nitrogen 10 mg/dL (6-20); Calcium 9.4 mg/dL (8.5-10.5); Carbon Dioxide 26 mmol/L (22-29); Chloride 99 mmol/L (98-107); Globulin 3.4 g/dL (1.3-4.6); Glomerular Filtration Rate 89.3 mL/min (90-130); Glucose 99 mg/dL (65-115); Lipase 23 U/L (13-60); Osmolality Calculated 287 mOsm/kg (285-295); Sodium 139 mmol/L (136-145); Total Bilirubin 0.2 mg/dL (0.15-1.2); Total Protein 7.5 g/dL (6.6-8.7)
--- NOTE | 2022-07-11 15:10 | CTR_ITS ---
PROCEDURE INFORMATION: Exam: CT Abdomen And Pelvis With Contrast Exam date and time: 07/11/2022 3:29 PM Age: 46 years old Clinical indication: Other: Blood in urine; Prior surgery; Surgery date: <1 month; Surgery type: Post hyster 3wks; Additional info: Lower abd pain TECHNIQUE: Imaging protocol: Computed tomography of the abdomen and pelvis with contrast. Radiation optimization: All CT scans at this facility use at least one of these dose optimization techniques: automated exposure control; mA and/or kV adjustment per patient size (includes targeted exams where dose is matched to clinical indication); or iterative reconstruction. Contrast material: OMNI 350; Contrast volume: 95 ml; Contrast route: INTRAVENOUS (IV); COMPARISON: CT abdomen pelvis wo con [id number] 06/25/2022 4:49 AM RADIATION DOSE METRICS: Total DLP (mGy-cm): 771.34 FINDINGS: Diaphragm: A small hiatal hernia is present. Liver: Normal. No mass. Gallbladder and bile ducts: Normal. No calcified stones. No ductal dilation. Pancreas: Normal. No ductal dilation. Spleen: Normal. No splenomegaly. Adrenal glands: Normal. No mass. Kidneys and ureters: Left kidney dual collecting system is appreciated which joins in the pelvis. The superior pole moiety of the left kidney demonstrates mild hydronephrosis. The right kidney appears normal. No renal stone is visualized. Stomach and bowel: Unremarkable. No obstruction. No mucosal thickening. Appendix: The appendix is normal. Intraperitoneal space: Unremarkable. No free air. No significant fluid collection. Vasculature: Unremarkable. No abdominal aortic aneurysm. Lymph nodes: Unremarkable. No enlarged lymph nodes. Urinary bladder: Unremarkable as visualized. Reproductive: The uterus has been resected. A 4.8 x 4.9 cm abscess is present in the pelvis adjacent to the vaginal cuff. A small amount of fluid and air are seen in the vagina. Bones/joints: Unremarkable. No acute fracture. Soft tissues: Unremarkable. CT/CT abdomen pelvis w con* [id number] IMPRESSION: 1. Pelvic abscess. 2. Small hiatal hernia.
[2022-07-11 15:13] LABS: Anion Gap 18.4 (5-19); Aspartate Amino Transferase 15 U/L (0-32); Potassium 4.4 mmol/L (3.5-5.1)
[2022-07-11] MEDS: iohexol 350 mg/mL 100 mL Btl IV (15:40)
[2022-07-11 15:54] VITALS: BP 118/70; PULSE 75; RESP 18; O2SAT 98
--- NOTE | 2022-07-11 16:45 | PM.OBGYHP ---
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 Seen in the emergency room for pelvic dysfunction. Abdominal CT scan shows a possible vaginal cuff abscess. However her pain was not related to this finding. Admitted for IV antibiotic therapy Review of Systems Const: Denies: fever(s) or chills Eyes: Denies: change in vision ENMT: Denies: mouth pain Card: Denies: chest pain or palpitations Resp: Denies: dyspnea or non-productive cough GI: Reports: abdominal pain (+lower abd pain); Denies: nausea, vomiting or diarrhea : Reports: other (+gross hematuria) Musc: Denies: extremity pain Skin/Breast: Denies: rash or new lesions Neuro: Denies: weakness in extremities Psych: Reports: other (Normal mood) Barrera/Lymph: Denies: easy bruising Medications/Allergies Home Medications Medication Instructions Recorded Confirmed Last Taken Type atorvastatin 40 mg tablet 40 mg PO BEDTIME 02/11/22 07/11/22 07/10/22 History lisinopril 10 mg tablet 5 mg PO BEDTIME 02/11/22 07/11/22 07/10/22 History acetaminophen 325 mg capsule 325 mg PO Q4H PRN fever or pain 06/19/22 07/11/22 Unknown Rx #60 caps nitrofurantoin macrocrystal 100 mg 100 mg PO BID 7 days #14 caps 07/09/22 07/11/22 07/11/22 Rx capsule Allergies Allergy/AdvReac Type Severity Reaction Status Date / Time No Known Allergies Allergy Verified 07/11/22 11:41 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: Medical History GERD (gastroesophageal reflux disease) Family History Family/Other Breast cancer maternal great aunt, 40's Colon cancer maternal aunt, 60's Mother Diabetes Hyperlipidemia Hypertension Stroke Thyroid condition Heart disease Sister Uterine cancer 20's Denies family history of Ovarian cancer Social History Smoking and tobacco status: current every day smoker History History History 5 Term 0 3 Miscarriages/Ectopic 2 Living Children 3 Vitals/I&O/Wt Last Vital Signs Temp 98.4 F 07/13/22 05:00 Pulse 73 07/13/22 05:00 Resp 16 07/13/22 05:00 BP 124/66 07/13/22 05:00 Pulse Ox 98 07/13/22 05:00 O2 Del Method 07/13/22 05:00 07/13/22 07/13/22 07/13/22 06:59 14:59 22:59 Intake Total 1153.25 / 2459.75 50 / 50 Balance 1153.25 / 2459.75 50 / 50 Weight last 48 hrs Weight 79.379 kg Physical Exam Const: COMMON NORMALS: no acute distress, average body habitus and patient oriented x3 GENERAL APPEARANCE: cooperative and well kempt HENMT: COMMON NORMALS: normocephalic and atraumatic HEAD & SCALP: normocephalic and atraumatic Neck/C-Spine: COMMON NORMALS: full ROM Chest: COMMONS NORMALS: normal inspection of the chest Resp: COMMON NORMALS: normal respiratory effort Cardio: COMMON NORMALS: regular rate and regular rhythm RATE: regular rate RHYTHM: regular rhythm GI: INSPECTION: Yes normal to inspection Neuro: COMMON NORMALS: patient oriented x3 Psych: APPEARANCE: Yes well kempt Urinary Catheter Management: Laughlin Latex: Cath Placed During This Visit: no Data : 07/13/22 04:05 07/13/22 04:05 A&P Assessment and plan (1) Vaginal cuff cellulitis: Patient was counseled regarding abdominal CT Finding suggestive of vaginal cuff abscess and cellulitis. We will start IV antibiotic therapy for least 48 hours. 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
[2022-07-11 17:00] VITALS: BP 146/89; PULSE 84; RESP 16; TEMP 37.2; O2SAT 99
[2022-07-11 17:15] VITALS: BMI 32.0
[2022-07-11] MEDS: clindamycin 600 MG/50 ML PREMIX 100 MG IV (17:59)
[2022-07-11] MEDS: lactated ringers 1,000 ML 75 ML IV (17:59)
[2022-07-11] MEDS: atorvastatin 40 mg Tablet PO (21:28)
[2022-07-11] MEDS: lisinopril 5 mg Tablet PO (21:28)
[2022-07-11] MEDS: ampicillin-sulbactam 3 GM in sodium chloride 0.9% (plus) 50 ML IV (21:31)
[2022-07-11] MEDS: nicotine 7 mg Patch 1 PATCH TRANSDERMA (21:34)
[2022-07-11 21:50] VITALS: BP 114/73; PULSE 83; RESP 16; TEMP 36.9; O2SAT 99
[2022-07-12] MEDS: ampicillin-sulbactam 3 GM in sodium chloride 0.9% (plus) 50 ML IV ×4 (04:04→22:42)
[2022-07-12 04:05] VITALS: BP 114/75; PULSE 75; RESP 16; TEMP 36.8
[2022-07-12 04:06] LABS: Basophils % 0.4 %; Eosinophils # 0.2 10^3/uL (0.0-0.8); Hematocrit 32.5 % (37.0-47.0); Hemoglobin 10.5 g/dL (11.5-15.3); Lymphocytes # 2.5 10^3/uL (0.8-4.8); Lymphocytes % 25.2 %; Mean Corpuscular HGB Conc 32.3 g/dL (30.0-36.0); Mean Corpuscular Hemoglobin 28.8 pg (28.0-34.0); Mean Corpuscular Volume 89.3 fl (81-99); Mean Platelet Volume 10.3 fL (7.4-10.4); Monocytes # 0.7 10^3/uL (0.2-0.9); Neutrophils # 6.44 10^3/uL (1.8-7.7); Neutrophils % 64.9 %; Nucleated Red Blood Cells % 0 %; Platelet Count 278 10^3/cmm (130-400); Red Blood Count 3.64 10^6/uL (4.1-5.3); Red Cell Distribution Width 13.3 % (12.1-15.1); White Blood Count 9.9 10^3/uL (4.0-10.0)
[2022-07-12 04:30] LABS: Alanine Aminotransferase 11 U/L (0-33); Alkaline Phosphatase 105 IU/L (35-105); Anion Gap 16.8 (5-19); Aspartate Amino Transferase 8 U/L (0-32); Blood Urea Nitrogen 9 mg/dL (6-20); Calcium 8.5 mg/dL (8.5-10.5); Carbon Dioxide 23 mmol/L (22-29); Chloride 103 mmol/L (98-107); Globulin 2.2 g/dL (1.3-4.6); Glomerular Filtration Rate 89.3 mL/min (90-130); Glucose 117 mg/dL (65-115); Osmolality Calculated 288 mOsm/kg (285-295); Potassium 3.8 mmol/L (3.5-5.1); Sodium 139 mmol/L (136-145); Total Bilirubin 0.2 mg/dL (0.15-1.2); Total Protein 5.2 g/dL (6.6-8.7)
[2022-07-12 04:39] LABS: Follicle Stimulating Hormone 47.9 mIU/mL
[2022-07-12] MEDS: nitrofurantoin SR (BID) 100 mg Capsule PO ×2 (08:42→17:41)
[2022-07-12] MEDS: nicotine 2 mg Gum 4 MG BUCCAL (10:06)
[2022-07-12] MEDS: lactated ringers 1,000 ML 75 ML IV (10:08)
--- NOTE | 2022-07-12 11:11 | P.PN_ITS ---
Subjective Subjective: 38-year-old female status post total vaginal hysterectomy 3 weeks ago. Referring abdominal discomfort. Vitals/I&O/Wt Last Vital Signs Temp 98.2 F 07/12/22 04:05 Pulse 75 07/12/22 04:05 Resp 16 07/12/22 04:05 BP 114/75 07/12/22 04:05 Pulse Ox 99 07/11/22 21:50 O2 Del Method 07/11/22 21:50 07/11/22 07/12/22 07/12/22 22:59 06:59 14:59 Intake Total 1153.25 / 1153.25 50 / 1203.25 1000 / 1000 Balance 1153.25 / 1153.25 50 / 1203.25 1000 / 1000 Weight last 48 hrs Weight 79.379 kg Weight 79.379 kg Physical Exam Narrative: GA: Alert and oriented ?3. HEENT: WNL. Heart: Regular rate and rhythm. Lungs: Clear to auscultation bilaterally. Abdomen: Bowel sounds present, nontender. MANAGER OF SELECTION AND ASSESSMENT: Spotting bleeding. Extremities: No edema, no cyanosis, no calves pain. Urinary Catheter Management: Laughlin Latex: Cath Placed During This Visit: no Data : 07/13/22 04:05 07/13/22 04:05 Micro: Microbiology 07/11/22 14:24 Urine Culture - Preliminary Urine,Clean Catch 07/11/22 17:45 Blood Culture - Preliminary Blood SPECIMEN COLLECTED 07/11/22 17:50 Blood Culture - Preliminary Blood SPECIMEN COLLECTED A&P Assessment and plan (1) Vaginal cuff cellulitis: Patient is status post TVH with BSO, anterior colporrhaphy augmented with allograft, single incision mid urethral sling, and posterior colporrhaphy 3 weeks ago. Came to the emergency room with a chief complaint of abdominal discomfort and UTI symptoms. Abdominal CT scan suggestive of vaginal cuff abscess. Counseled regarding findings and recommendation for IV therapy for 48 hours. 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
[2022-07-12] MEDS: hyDROXYzine 25 mg Capsule 50 MG PO ×3 (11:47→23:53)
[2022-07-12 16:00] VITALS: BP 120/78; PULSE 79; RESP 16; TEMP 36.9
[2022-07-12] MEDS: nicotine 21 mg Patch 1 PATCH TRANSDERMA (17:41)
[2022-07-12] MEDS: atorvastatin 40 mg Tablet PO (21:16)
[2022-07-12] MEDS: lisinopril 5 mg Tablet PO (21:16)
[2022-07-12 21:21] VITALS: BP 128/77; PULSE 77; RESP 16; TEMP 36.7; O2SAT 98
[2022-07-13] MEDS: lactated ringers 1,000 ML 75 ML IV (02:43)
[2022-07-13 04:22] LABS: Basophils % 0.3 %; Eosinophils # 0.1 10^3/uL (0.0-0.8); Eosinophils % 0.9 %; Hematocrit 32.5 % (37.0-47.0); Hemoglobin 10.5 g/dL (11.5-15.3); Lymphocytes # 1.5 10^3/uL (0.8-4.8); Mean Corpuscular HGB Conc 32.3 g/dL (30.0-36.0); Mean Corpuscular Hemoglobin 28.7 pg (28.0-34.0); Mean Corpuscular Volume 88.8 fl (81-99); Mean Platelet Volume 10.6 fL (7.4-10.4); Monocytes # 0.7 10^3/uL (0.2-0.9); Monocytes % 8.2 %; Neutrophils # 6.36 10^3/uL (1.8-7.7); Neutrophils % 72.9 %; Nucleated Red Blood Cells % 0 %; Platelet Count 251 10^3/cmm (130-400); Red Blood Count 3.66 10^6/uL (4.1-5.3); Red Cell Distribution Width 13.3 % (12.1-15.1); White Blood Count 8.7 10^3/uL (4.0-10.0)
[2022-07-13 04:41] LABS: Gentamicin Trough 1.5 ug/mL (0.0-8.0)
[2022-07-13 05:00] VITALS: BP 124/66; PULSE 73; RESP 16; TEMP 36.9; O2SAT 98
[2022-07-13 05:05] LABS: Alanine Aminotransferase 9 U/L (0-33); Albumin Level 3.3 g/dL (3.5-5.2); Alkaline Phosphatase 120 IU/L (35-105); Anion Gap 15.9 (5-19); Aspartate Amino Transferase 8 U/L (0-32); Blood Urea Nitrogen 7 mg/dL (6-20); Calcium 8.7 mg/dL (8.5-10.5); Carbon Dioxide 25 mmol/L (22-29); Chloride 104 mmol/L (98-107); Globulin 2.3 g/dL (1.3-4.6); Glomerular Filtration Rate 89.3 mL/min (90-130); Glucose 104 mg/dL (65-115); Osmolality Calculated 290 mOsm/kg (285-295); Potassium 3.9 mmol/L (3.5-5.1); Sodium 141 mmol/L (136-145); Total Bilirubin 0.2 mg/dL (0.15-1.2); Total Protein 5.6 g/dL (6.6-8.7)
[2022-07-13] MEDS: ampicillin-sulbactam 3 GM in sodium chloride 0.9% (plus) 50 ML IV ×2 (06:34→12:32)
[2022-07-13] MEDS: hyDROXYzine 25 mg Capsule 50 MG PO (06:41)
--- NOTE | 2022-07-13 07:00 | US_ITS ---
WS: [id number] ULTRASOUND PELVIS TECHNIQUE: Transvaginal. CLINICAL INFORMATION: abcess post hysterectomy COMPARISON: CT July 11, 2022 FINDINGS: Abscess somewhat difficult to differentiate from bladder on this examination. Abscess best seen on th e transabdominal imaging measuring 3.7 x 3.3 x 4.5 CM compared to 4.8 x 4.9 cm in the prior CT. This appears smaller compared to the prior CT. No other remarkable findings. US/US transvaginal [id number] IMPRESSION: Abscess best seen on the transabdominal imaging measuring 3.7 x 3.3 x 4.5 CM. T his appears smaller but persistent compared to the prior CT.
[2022-07-13] MEDS: nitrofurantoin SR (BID) 100 mg Capsule PO (11:30)
--- NOTE | 2022-07-13 16:52 | PM.OBGYDC ---
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 Sexton 46-year-old female status post total vaginal hysterectomy with bilateral salpingo-oophorectomy, anterior colporrhaphy augmented with allograft, single incision mid urethral sling, and posterior colporrhaphy 3 weeks ago. Came to the emergency room with abdominal discomfort and UTI symptoms. During ER evaluation abdominal CT scan findings suggestive of vaginal cuff abscess. Despite patient denying pelvic pain patient was admitted for IV antibiotic therapy. Physical Exam Narrative: GA: Alert and oriented ?3. HEENT: WNL. Heart: Regular rate and rhythm. Lungs: Clear to auscultation bilaterally. Abdomen: Bowel sounds present, nontender. VP PRODUCT: Spotting bleeding. Extremities: No edema, no cyanosis, no calves pain. History History History 5 Term 0 3 Miscarriages/Ectopic 2 Living Children 3 Discharge Data Studies Completed and Pending Completed Studies During Hospitalization Category Date Time Status CT abdomen pelvis w con* [id number] Stat Cat Scan 07/11/22 15:10 Completed US transvaginal [id number] Routine Ultrasound 07/13/22 07:00 Completed Pending at discharge Category Date Time Status Blood Culture Stat Lab 07/11/22 17:45 Results Urine Culture Stat Lab 07/11/22 14:24 Results Radiology Impressions Abdomen/Pelvis CT 07/11/22 15:10 IMPRESSION: 1. Pelvic abscess. 2. Small hiatal hernia. Transvaginal US 07/13/22 07:00 IMPRESSION: Abscess best seen on the transabdominal imaging measuring 3.7 x 3.3 x 4.5 CM. This appears smaller but persistent compared to the prior CT. Laboratory Results WBC 8.7 10^3/uL (4.0-10.0) 07/13/22 04:05 RBC 3.66 10^6/uL (4.1-5.3) L 07/13/22 04:05 Hgb 10.5 g/dL (11.5-15.3) L 07/13/22 04:05 Hct 32.5 % (37.0-47.0) L 07/13/22 04:05 MCV 88.8 fl (81-99) 07/13/22 04:05 MCH 28.7 pg (28.0-34.0) 07/13/22 04:05 MCHC 32.3 g/dL (30.0-36.0) 07/13/22 04:05 RDW 13.3 % (12.1-15.1) 07/13/22 04:05 Plt Count 251 10^3/cmm (130-400) 07/13/22 04:05 MPV 10.6 fL (7.4-10.4) H 07/13/22 04:05 Neut % (Auto) 72.9 % 07/13/22 04:05 Lymph % (Auto) 17.0 % 07/13/22 04:05 [place] % (Auto) 8.2 % 07/13/22 04:05 Eos % (Auto) 0.9 % 07/13/22 04:05 Baso % (Auto) 0.3 % 07/13/22 04:05 Neut # (Auto) 6.36 10^3/uL (1.8-7.7) 07/13/22 04:05 Lymph # (Auto) 1.5 10^3/uL (0.8-4.8) 07/13/22 04:05 [place] # (Auto) 0.7 10^3/uL (0.2-0.9) 07/13/22 04:05 Eos # (Auto) 0.1 10^3/uL (0.0-0.8) 07/13/22 04:05 Baso # (Auto) 0.0 10^3/uL (0.0-0.1) 07/13/22 04:05 Nucleated RBC % (auto) 0 % 07/13/22 04:05 Nucleated RBCs # 0.0 /100WBC 07/13/22 04:05 PT 13.70 SECONDS (12.1-14.9) 07/11/22 14:24 INR 1.02 (0.8-1.2) 07/11/22 14:24 APTT 24.5 SECONDS (23.9-36.7) 07/11/22 14:24 Sodium 141 mmol/L (136-145) 07/13/22 04:05 Potassium 3.9 mmol/L (3.5-5.1) 07/13/22 04:05 Chloride 104 mmol/L (98-107) 07/13/22 04:05 Carbon Dioxide 25 mmol/L (22-29) 07/13/22 04:05 Anion Gap 15.9 (5-19) 07/13/22 04:05 BUN 7 mg/dL (6-20) 07/13/22 04:05 Creatinine 0.7 mg/dL (0.5-0.9) 07/13/22 04:05 GFR Calculation 89.3 mL/min (90-130) L 07/13/22 04:05 Glucose 104 mg/dL (65-115) 07/13/22 04:05 Calculated Osmolality 290 mOsm/kg (285-295) 07/13/22 04:05 Calcium 8.7 mg/dL (8.5-10.5) 07/13/22 04:05 Total Bilirubin 0.2 mg/dL (0.15-1.2) 07/13/22 04:05 AST 8 U/L (0-32) 07/13/22 04:05 ALT 9 U/L (0-33) 07/13/22 04:05 Alkaline Phosphatase 120 IU/L (35-105) H 07/13/22 04:05 Total Protein 5.6 g/dL (6.6-8.7) L 07/13/22 04:05 Albumin 3.3 g/dL (3.5-5.2) L 07/13/22 04:05 Globulin 2.3 g/dL (1.3-4.6) 07/13/22 04:05 Lipase 23 U/L (13-60) 07/11/22 14:24 FSH 47.9 mIU/mL 07/12/22 04:00 Urine Color Yellow (Yellow) 07/11/22 14:24 Urine Appearance Sl hazy (CLEAR) 07/11/22 14:24 Urine pH 5 (5-7) 07/11/22 14:24 Ur Specific [place] 1.025 (1.005-1.030) 07/11/22 14:24 Urine Protein Neg (Negative) 07/11/22 14:24 Urine Glucose (UA) Norm (Normal) 07/11/22 14:24 Urine Ketones 1+ (Negative) H 07/11/22 14:24 Urine Blood 2+ (Negative) H 07/11/22 14:24 Urine Nitrate Negative (Negative) 07/11/22 14:24 Urine Bilirubin Neg (Negative) 07/11/22 14:24 Urine Urobilinogen 1 mg/dL (Negative) H 07/11/22 14:24 Ur Leukocyte Esterase 1+ (Negative) H 07/11/22 14:24 Urine RBC 5-10 /hpf (0-2) H 07/11/22 14:24 Urine WBC 15-25 /hpf (0-5) H 07/11/22 14:24 Ur Squamous Epith Cells Rare /hpf (0-5) 07/11/22 14:24 Calcium Oxalate Crystal 0-4 /hpf H 07/11/22 14:24 Amorphous Sediment Not Reportable 07/11/22 14:24 Urine Bacteria 1+ /hpf (NONE) H 07/11/22 14:24 Urine Mucus 2+ /hpf 07/11/22 14:24 Gentamicin Trough 1.5 ug/mL (0.0-8.0) 07/13/22 04:05 Vitals Last Vital Signs Temp 98.4 F 07/13/22 05:00 Pulse 73 07/13/22 05:00 Resp 16 07/13/22 05:00 BP 124/66 07/13/22 05:00 Pulse Ox 98 07/13/22 05:00 O2 Del Method 07/13/22 05:00 Discharge Plan Discharge Patient Disposition: Home Condition: Stable Prescriptions: New hydrocodone-acetaminophen 5-325 mg tablet 1 tab PO Q4H PRN (Reason: pain) Qty: 20 0RF clindamycin HCl 300 mg capsule 300 mg PO Q8H 10 Days Qty: 30 0RF docusate sodium [Colace] 100 mg capsule 100 mg PO BID Qty: 30 0RF ibuprofen 800 mg tablet 800 mg PO TID PRN (Reason: pain) Qty: 60 0RF nitrofurantoin monohyd/m-cryst [Macrobid] 100 mg capsule 100 mg PO BID 7 Days Qty: 14 0RF Rx Instructions: must administer with a meal/food hydroxyzine pamoate [Vistaril] 25 mg capsule 25 mg PO BID PRN (Reason: itching) Qty: 14 0RF metronidazole 500 mg tablet 500 mg PO BID 14 Days Qty: 28 0RF Continued lisinopril 10 mg tablet 5 mg PO BEDTIME atorvastatin 40 mg tablet 40 mg PO BEDTIME nitrofurantoin macrocrystal 100 mg capsule 100 mg PO BID 7 Days Qty: 14 0RF Rx Instructions: must administer with a meal/food acetaminophen 325 mg capsule 325 mg PO Q4H PRN (Reason: fever or pain) Qty: 60 0RF Discharge Orders: Discharge Order (Routine); Ordered 07/13/22 Ordered By: Abdulkadir Funez Referrals: Maricruz Poole PA-C [Primary Care Provider] - Discharge Diet: Advance as tolerated and Usual diet Discharge Activity: Limit activity as instructed Patient Instructions: Opioid Safety Activity Restrictions/Additional Instructions: 1. Please call [facility] on next working day to make your post[-operative] appointment in 1 weeks. 2. Please stay home until you come back to the clinic on first post-operative check up. 3. Please follow instructions on your medications CAREFULLY. 4. If you have abdominal incision, do not cover it unless dressing is necessary because of drainage. OK to shower, but avoid bath. Leave steri-strips until they fall off. If they are still on one week after surgery, you may remove them. 5. If you had vaginal surgery or vaginal repair, Dr. Funez may instruct you to take SITZ bath. 6. Yellow, blood tinged odorous vaginal discharge is usually normal after hysterectomy or vaginal surgeries. 7. No sexual intercourse, tampons, or douches until you are completely released from the post-operative care. 8. Avoid constipation by eating right and maybe using some Metamucil or Milk of Magnesia. 9. All prescription refills are given during the working hours. Please do no wait till it runs out. Call the clinic at [phone] before your medication runs out. The clinic will get in touch with your doctor to prescribe medications if necessary. 10. Please remain within 40 mile radius from our hospital because emergencies do happen now and then during the post-operative period. 11. If you have stairs at home, take one step at a time slowly and minimize the number of trips. It helps to stay in one floor for the next few days. No lifting except what you can lift by one hand until you are released from the post-operative care. 12. Driving is discouraged until you are well healed. It may be 3-4 weeks before you feel strong enough to drive. You should be able to turn and look through the rear window without pain and you should be able to push the brake pedal very hard without pain before you drive. No fast rules, but SAFETY should be your primary concern. DO NOT drive if you are on sedating medications such as narcotics. 13. Call the clinic (during working hours) to make urgent appointment or go to the Emergency room, if any of the following occurs: i. Vaginal bleeding becomes heavy, more than a period. ii. Incision becomes red and sore, or drains pus. iii. Your temperature is over 100.4 or you have chill. iv. IV site becomes red and swollen (a little ``knot?? is usually OK) v. Persistent nausea and vomiting vi. Persistent constipation or diarrhea vii. Rash or allergic reaction to medications. 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
[2022-07-13 17:00] VITALS: BP 119/64; PULSE 69; RESP 16; TEMP 36.8
== END 2022-07-13 17:00 | disposition home or self-care (01) | DRG 759 ==
LOC: ER 16:56 → OBGYN 17:05
PROVIDERS: Admitting Provider Obstetrics & Gynecology; Emergency Provider Emergency Medicine; PCP Physician Assistant; Visit Provider Obstetrics & Gynecology
DX: N76.0 Acute vaginitis (principal); K21.9 Gastro-esophageal reflux disease without esophagitis; F17.200 Nicotine dependence, unspecified, uncomplicated; Z90.710 Acquired absence of both cervix and uterus; Z90.722 Acquired absence of ovaries, bilateral; Z90.79 Acquired absence of other genital organ(s)
CPT/HCPCS: 36415; 74177; 76830; 80053; 80170; 81000; 81001; 83001; 83690; 85018; 85025; 85610; 85730; 87040; 87086; 96365; 96367; 99285; J0295; J1580; J3490; J7030; Q9967

== ENCOUNTER → 2022-07-31 11:10 | Outpatient (BNVA) | payer BC, SELFPAY | PROVIDERS: PCP Physician Assistant; Visit Provider Obstetrics & Gynecology | DX: R30.0 Dysuria (principal) | CPT/HCPCS: 81000 ==

== ENCOUNTER → 2022-08-04 09:00 | Outpatient (BNVA) | payer BC, SELFPAY | PROVIDERS: PCP Physician Assistant; Visit Provider Obstetrics & Gynecology | DX: N95.1 Menopausal and female climacteric states (principal); N39.46 Mixed incontinence; R39.9 Unspecified symptoms and signs involving the genitourinary system | CPT/HCPCS: 87086 ==

== ENCOUNTER → 2022-08-20 12:21 | Outpatient (BNVA) | payer BC, SELFPAY | PROVIDERS: PCP Physician Assistant; Visit Provider Obstetrics & Gynecology | DX: N39.0 Urinary tract infection, site not specified (principal); R39.9 Unspecified symptoms and signs involving the genitourinary system | CPT/HCPCS: 81000 ==

== ENCOUNTER → 2022-09-07 09:46 | Outpatient (BNVA) | payer BC, SELFPAY | PROVIDERS: PCP Physician Assistant; Visit Provider Obstetrics & Gynecology | DX: R30.0 Dysuria (principal); N89.8 Other specified noninflammatory disorders of vagina | CPT/HCPCS: 81000 ==

== ENCOUNTER → 2022-09-16 09:19 | Outpatient (BNVA) | payer BC, SELFPAY | PROVIDERS: PCP Physician Assistant; Visit Provider Obstetrics & Gynecology | DX: R39.9 Unspecified symptoms and signs involving the genitourinary system (principal) | CPT/HCPCS: 81000; 87077; 87086; 87184 ==

== ENCOUNTER 2022-10-16 08:17 | Outpatient (CLI) | payer BC, SELFPAY ==
--- NOTE | 2022-10-16 08:39 | MM_ITS ---
WS: [id number] VIEWS: MLO and CC views both breasts. 3D digital tomosynthesis is also included in this exam. No priors. Findings: There was no sign of mass, architectural distortion or suspicious calcification in either breast. Sc attered fibroglandular densities MM/[place] [id number] Impression: BI-RADS: 2-Benign FOLLOW-UP: 1 Year Follow-up This mammogram was also analyzed by the Computer Aided Detection System R2 Imag e Assistant Store Manager.
== END 2022-10-16 08:18 | disposition home or self-care (01) ==
PROVIDERS: PCP Nurse Practitioner Family; Visit Provider Nurse Practitioner Family
DX: Z12.31 Encounter for screening mammogram for malignant neoplasm of breast (principal)
CPT/HCPCS: 77063; 77067

== ENCOUNTER 2022-11-09 09:08 | Outpatient (CLI) | payer BC, SELFPAY ==
--- NOTE | 2022-11-09 09:30 | CT_ITS ---
WS: [id number] CT HEAD NONCONTRAST HISTORY: G43.909 - Migraine, unspecified, not intractable, TECHNIQUE: Contiguous axial imaging performed through the brain in 2.5 mm imaging. Bone and soft tiss ue windows. Sagittal and coronal reformats reviewed. All CT scans at [facility] use at least one of these dose optimization techniques: automated exposure control; mA and/or kV adjustment per pa tient size (includes targeted exams where dose is matched to clinical indication); or iterative recon struction. DLP: 1034.84 mGy.cm COMPARISON: None available. No acute intracranial hemorrhage, midline shift or mass effect. No atrophy or prior infarcts or herniation. Ventricles: Normal size with no hydrocephalus. No inferior displacement of cerebellar tonsils. There is very slight ectopia of the tonsils. Paranasal sinuses: As visualized are clear. Mastoid air cells: Well pneumatized. Calvarium and scalp: Skull is intact with no soft tissue edema or swelling. CT/CT head wo con* [id number] IMPRESSION: Negative head CT.
== END 2022-11-09 09:09 | disposition home or self-care (01) ==
LOC: RAD 09:10
PROVIDERS: PCP Nurse Practitioner Family; Visit Provider Nurse Practitioner Family
DX: G43.909 Migraine, unspecified, not intractable, without status migrainosus (principal)
CPT/HCPCS: 70450

== ENCOUNTER → 2022-11-10 09:08 | Outpatient (BNVA) | payer BC, SELFPAY | PROVIDERS: PCP Nurse Practitioner Family; Visit Provider Emergency Medicine | DX: Z34.90 Encounter for supervision of normal pregnancy, unspecified, unspecified trimester (principal); N30.01 Acute cystitis with hematuria | CPT/HCPCS: 81000 ==

== ENCOUNTER → 2022-12-02 09:06 | Outpatient (BNVA) | payer BC, SELFPAY | PROVIDERS: PCP Nurse Practitioner Family; Visit Provider Internal Medicine Cardiovascular Disease | DX: I10 Essential (primary) hypertension (principal); R06.02 Shortness of breath; Z82.49 Family history of ischemic heart disease and other diseases of the circulatory system | CPT/HCPCS: 80053; 80061; 83036; 83721; 85025 ==

== ENCOUNTER 2023-02-05 08:20 | Outpatient (CLI) | payer BC, SELFPAY ==
[2023-02-05 08:56] VITALS: BMI 34.4
--- NOTE | 2023-02-05 08:58 | ECG_ITS ---
[facility] Test Date: 2023-02-05 Pat Name: Shankar Sexton Department: Room: Gender: Female Outpatient Therapist: : 1975 Requested By: Brooklynn Lara Order Number: [id number] Joe MD: Louis Acosta M.D. Interpretive Statements NAME OF STUDY: EXERCISE SESTAMIBI STRESS TEST INDICATION: Sob PROCEDURE: The baseline electrocardiogram showed normal sinus rhythm with normal ST-Ts occasional sublingual ectopics. Some nonspecific T wave changes. At the baseline, the patient's blood pressure was 118/56 mm Hg with a heart rate of 98. The patient exercised for 5 minutes and 45 seconds on a standard Jj protocol. Patient attained a maximum heart rate of 154 beats per minute(90% of the maximum predicted heart rate) with a blood pressure at the peak exercise of 173/110 mm Hg. The EKG at the peak exercise revealed no significant changes. Patient did not have any chest pain or any significant arrhythmis with the exercise Sestamibi was injected 1 minute prior to the peak exercise During the recovery phase, there were no new changes. Blood pressure at the end of the recovery phase was 161/100 mm Hg with a heart rate of 108 per minute. CONCLUSION: 1. No significant EKG changes with the [treadmill exercise 2. No exercise-induced chest pain or cardiac arrhythmia 3. Impaired exercise tolerance, attained a maximum of seven-point METs 4. Sestamibi/Sestamibi perfusion results pending; see separate report. Electronically Signed On 02-08-2023 0:06:09 CDT by Louis Acosta M.D. [id number]
--- NOTE | 2023-02-05 08:59 | NMCV_ITS ---
NM dru perf SPECT r/s* [id number] Shankar Sexton Age: 47 Gender: F : 1975 Exam Date: 02/05/2023 10:02 Ordering Phys: Brooklynn Lara MD ([email or web address]) Technologist: UZIEL Menezes Exam Location: [facility] Indications: SHORTNESS OF BREATH STRESS TEST Please see separate stress test [facility] for [facility] findings IMAGE PROTOCOL Rest/Stress 1 Exercise Day Radiopharmaceutical Dose (mCi) Administration Site Administered by Rest: Tc-99m 10.6 IV UZIEL Menezes Sestamibi Stress:Tc-99m 32.7 IV UZIEL Ca Sestamibi Rest: 05-Feb-2023 60 Discovery 630 Stress: 05-Feb-2023 15 Discovery 630 Radiopharmaceutical was injected at 87 % maximum heart rate. Images obtained in supine and prone position. SPECT RESULTS Technical Quality: Excellent Raw Data Analysis: Normal Image Corrections: No attenuation or motion correction applied Summed Stress Score: 0 Summed Rest Score: 0 Summed Difference Score: 0 PERFUSION FINDINGS Uniform myocardial tracer uptake with no significant perfusion abnormalities FUNCTIONAL RESULTS (calculated via Gated SPECT) Stress Image LV EF (%): 87 Stress EDV (mL):46 TID: 0.59 Stress ESV (mL):6 FUNCTIONAL FINDINGS: Segmental wall motion analysis revealing no gross wall motion abnormalities IMPRESSIONS 1. Myocardial perfusion imaging revealing uniform myocardial tracer uptake with no significant perfusion abnormalities. 2. Normal LV ejection fraction of 87%. 3. LV wall motion analysis revealing no gross wall motion abnormalities 4. Normal LV volume Low probability for coronary ischemia, based on the above findings Dr Louis Acosta MD FACC (Electronically Signed) Final Date: 05 February 2023 18:30 S
[2023-02-05 11:45] VITALS: BP 161/100; PULSE 106
== END 2023-02-05 08:21 | disposition home or self-care (01) ==
PROVIDERS: PCP Nurse Practitioner Family; Visit Provider Internal Medicine Cardiovascular Disease
DX: R06.02 Shortness of breath (principal)
CPT/HCPCS: 36415; 78452; 93017; A9500

== ENCOUNTER → 2023-04-29 11:05 | Outpatient (BNVA) | payer BC, SELFPAY | PROVIDERS: PCP Family Medicine; Visit Provider Family Medicine | DX: R73.03 Prediabetes (principal); R53.83 Other fatigue | CPT/HCPCS: 82607; 82652; 83036; 84443 ==

== ENCOUNTER → 2023-05-12 09:28 | Outpatient (BNVA) | payer BC, SELFPAY | PROVIDERS: PCP Family Medicine; Visit Provider Nurse Practitioner Family | DX: N39.0 Urinary tract infection, site not specified (principal) | CPT/HCPCS: 81000; 87077; 87086; 87184 ==

== ENCOUNTER → 2023-06-08 10:00 | Outpatient (BNVA) | payer BC, SELFPAY | PROVIDERS: PCP Family Medicine; Visit Provider Family Medicine | DX: N39.0 Urinary tract infection, site not specified (principal) | CPT/HCPCS: 81000 ==

== ENCOUNTER → 2023-08-17 09:13 | Outpatient (BNVA) | payer BC, SELFPAY | PROVIDERS: PCP Family Medicine; Visit Provider Family Medicine | DX: I10 Essential (primary) hypertension (principal); R73.03 Prediabetes; Z68.34 Body mass index [BMI] 34.0-34.9, adult; B37.31 Acute candidiasis of vulva and vagina; R39.9 Unspecified symptoms and signs involving the genitourinary system; Z68.33 Body mass index [BMI] 33.0-33.9, adult; N39.0 Urinary tract infection, site not specified | CPT/HCPCS: 80053; 81000; 83036; 87077; 87086; 87184 ==

== ENCOUNTER → 2023-09-22 12:45 | Outpatient (BNVA) | payer BC, SELFPAY | PROVIDERS: PCP Family Medicine; Visit Provider Emergency Medicine | DX: R39.9 Unspecified symptoms and signs involving the genitourinary system (principal); N39.0 Urinary tract infection, site not specified | CPT/HCPCS: 81000; 87077; 87086; 87184 ==

== ENCOUNTER → 2024-04-25 08:39 | Outpatient (BNVA) | payer BC, SELFPAY | PROVIDERS: PCP Family Medicine; Visit Provider Family Medicine | DX: I10 Essential (primary) hypertension (principal) | CPT/HCPCS: 80053; 80061 ==

== ENCOUNTER → 2024-08-08 14:39 | Outpatient (BNVA) | payer BC, SELFPAY | PROVIDERS: PCP Family Medicine; Referring Provider Family Medicine; Visit Provider Family Medicine | DX: E11.9 Type 2 diabetes mellitus without complications (principal) | CPT/HCPCS: 80048; 83036 ==

== ENCOUNTER → 2024-10-23 08:59 | Outpatient (BNVA) | payer BC, SELFPAY | PROVIDERS: PCP Family Medicine; Referring Provider Family Medicine; Visit Provider Family Medicine | DX: R73.03 Prediabetes (principal); I10 Essential (primary) hypertension | CPT/HCPCS: 80053; 83036 ==

== ENCOUNTER → 2025-01-22 08:46 | Outpatient (BNVA) | payer BC, SELFPAY | PROVIDERS: PCP Family Medicine; Referring Provider Family Medicine; Visit Provider Family Medicine | DX: I10 Essential (primary) hypertension (principal); E11.9 Type 2 diabetes mellitus without complications; E78.2 Mixed hyperlipidemia; R53.83 Other fatigue | CPT/HCPCS: 80048; 80061; 83036 ==

== ENCOUNTER → 2025-03-09 14:00 | Outpatient (BNVA) | payer BC, SELFPAY | PROVIDERS: PCP Family Medicine; Visit Provider Family Medicine | DX: M54.12 Radiculopathy, cervical region (principal); M47.812 Spondylosis without myelopathy or radiculopathy, cervical region | CPT/HCPCS: 72040 ==

== ENCOUNTER → 2025-03-30 11:07 | Outpatient (BNVA) | payer BC, SELFPAY | PROVIDERS: PCP Family Medicine; Referring Provider Family Medicine; Visit Provider Nurse Practitioner Family | DX: M54.2 Cervicalgia (principal); M25.512 Pain in left shoulder | CPT/HCPCS: 73030 ==

== ENCOUNTER → 2025-10-04 14:50 | Outpatient (BNVA) | payer BC, SELFPAY | PROVIDERS: PCP Family Medicine; Visit Provider Nurse Practitioner Family | DX: R30.0 Dysuria (principal) | CPT/HCPCS: 81000; 87086 ==

== ENCOUNTER → 2025-11-06 08:45 | Outpatient (BNVA) | payer BC, SELFPAY | PROVIDERS: PCP Family Medicine; Visit Provider Family Medicine | DX: I10 Essential (primary) hypertension (principal) | CPT/HCPCS: 80048; 83036 ==

== ENCOUNTER → 2025-11-13 09:14 | Outpatient (BNVA) | payer BC, SELFPAY | PROVIDERS: PCP Family Medicine; Visit Provider Family Medicine | DX: R30.0 Dysuria (principal) | CPT/HCPCS: 81000 ==